=== PATIENT | male | born 1975 | race Two or more races ===

== ENCOUNTER → 2020-05-28 09:25 | Outpatient (BNVA) | payer OTHER, SELFPAY | PROVIDERS: PCP Internal Medicine; Visit Provider Orthopaedic Surgery | DX: Z47.89 Encounter for other orthopedic aftercare (principal); M17.31 Unilateral post-traumatic osteoarthritis, right knee; T14.90XS Injury, unspecified, sequela | CPT/HCPCS: 99024; 99212 ==

== ENCOUNTER → 2020-06-03 12:16 | Outpatient (BNVA) | payer OTHER, SELFPAY | PROVIDERS: PCP Internal Medicine; Referring Provider Internal Medicine; Visit Provider Orthopaedic Surgery | DX: Z76.89 Persons encountering health services in other specified circumstances (principal) ==

== ENCOUNTER 2020-07-10 12:34 | Outpatient (REF) | payer OTHER, SELFPAY ==
--- NOTE | 2020-07-10 12:43 | ECG_ITS ---
Test Reason : PREPROC EXAM Blood Pressure : / mmHG Vent. Rate : 052 BPM Atrial Rate : 052 BPM P-R Int : 178 ms QRS Dur : 100 ms QT Int : 400 ms P-R-T Axes : 034 026 035 degrees QTc Int : 372 ms Sinus bradycardia Otherwise normal ECG No previous ECGs available Referred By: Solomon Hernandes Electronically Signed By:RAYMOND WILSON MD
[2020-07-10 13:26] LABS: MANUAL DIFF FLAG NO
[2020-07-10 13:28] LABS: Basophils Absolute Auto 0.1 X10*3/uL (0.0-0.2); Basophils Percent Auto 0.6 % (0-2); Eosinophils Absolute Auto 0.1 X10*3/uL (0.0-0.4); Hematocrit 44.3 % (42-52); Hemoglobin 14.4 g/dl (14.0-18.0); Imm Gran Abs Auto 0.03 X10*3/uL (0.00-0.03); Imm Gran Pct Auto 0.3 % (0.0-0.4); Lymphocytes Absolute Auto 3.8 X10*3/uL (1.2-4.9); Lymphocytes Percent Auto 36.1 % (20-40); Mean Corpuscular HGB Conc 32.5 g/dl (31.0-36.0); Mean Corpuscular Hemoglobin 29.8 pg (27.0-33.0); Mean Corpuscular Volume 91.7 fL (80-98); Mean Platelet Volume 10.4 fL (9.4-12.4); Monocytes Absolute Auto 0.9 X10*3/uL (0.1-1.2); Monocytes Percent Auto 8.9 % (2-11); Neutrophils Absolute Auto 5.6 X10*3/uL (2.0-8.3); Neutrophils Percent Auto 53.1 % (45-73); Platelet Count 243 X10*3/uL (160-400); Red Blood Count 4.83 X10*6/uL (4.60-5.80); Red Cell Distribution Width 13.3 % (11.0-16.0); White Blood Count 10.5 X10*3/uL (4.8-10.8)
[2020-07-10 13:49] LABS: Anion Gap 10 (12-20); Blood Urea Nitrogen 11 mg/dL (9-16); Calcium 8.9 mg/dL (8.4-10.2); Carbon Dioxide 26 mmol/L (22-29); Chloride 107 mmol/L (96-108); Estimated Glomerular Filt Rate > 60; Glucose Random 95 mg/dL (60-115); Potassium 4.3 mmol/l (3.3-5.1); Sodium 139 mmol/L (135-145)
== END 2020-07-10 12:35 | disposition home or self-care (01) ==
LOC: HO.LAB 12:34
PROVIDERS: PCP Internal Medicine; Visit Provider Physician Assistant
DX: Z01.812 Encounter for preprocedural laboratory examination (principal)
CPT/HCPCS: 36415; 80048; 85025; 93005

== ENCOUNTER 2020-07-30 12:21 | Outpatient (REF) | payer OTHER, SELFPAY ==
--- NOTE | 2020-07-30 13:16 | XR_ITS ---
EXAMINATION: XR KNEE, RIGHT XR KNEE STANDING BILATERAL CLINICAL INFORMATION: Knee pain COMPARISON: 11/01/2019 TECHNIQUE: AP standing view both knees Right knee, sunrise and lateral views FINDINGS: AP STANDING VIEW OF BOTH KNEES Interval removal of the right tibial fixation hardware. Old, healed tibial plateau fractures. Also, old, healed fracture of the right fibular head-neck. At the degenerated medial compartment of the right knee, there is mild narrowing of joint space and osteophyte formation. Marginal osteophytes are present at the mildly degenerated lateral compartment. Bones have normal alignment at the left knee. The medial and lateral tibial femoral joint spaces of the left knee are maintained. There appears to be a subarticular cyst in the region of the intercondylar eminence. No suspicious bone lesion. Soft tissues are unremarkable. RIGHT KNEE, LATERAL AND SUNRISE VIEWS No knee joint effusion. Subchondral cystic change and osteophyte formation of mildly degenerated patellofemoral compartment. Again noted are multiple ghost tracks from previously placed and removed tibial fixation hardware. XR/XR knee RT 2V IMPRESSION: * Old healed fractures of the proximal right tibia and fibula. * [id number] tricompartmental osteoarthritis of the right knee.
--- NOTE | 2020-07-30 13:16 | XR_ITS ---
EXAMINATION: XR KNEE, RIGHT XR KNEE STANDING BILATERAL CLINICAL INFORMATION: Knee pain COMPARISON: 11/01/2019 TECHNIQUE: AP standing view both knees Right knee, sunrise and lateral views FINDINGS: AP STANDING VIEW OF BOTH KNEES Interval removal of the right tibial fixation hardware. Old, healed tibial plateau fractures. Also, old, healed fracture of the right fibular head-neck. At the degenerated medial compartment of the right knee, there is mild narrowing of joint space and osteophyte formation. Marginal osteophytes are present at the mildly degenerated lateral compartment. Bones have normal alignment at the left knee. The medial and lateral tibial femoral joint spaces of the left knee are maintained. There appears to be a subarticular cyst in the region of the intercondylar eminence. No suspicious bone lesion. Soft tissues are unremarkable. RIGHT KNEE, LATERAL AND SUNRISE VIEWS No knee joint effusion. Subchondral cystic change and osteophyte formation of mildly degenerated patellofemoral compartment. Again noted are multiple ghost tracks from previously placed and removed tibial fixation hardware. XR/XR knee standing BI IMPRESSION: * Old healed fractures of the proximal right tibia and fibula. * [id number] tricompartmental osteoarthritis of the right knee.
== END 2020-07-30 12:22 | disposition home or self-care (01) ==
LOC: HO.HOSX 12:21
PROVIDERS: Visit Provider Physician Assistant
DX: M17.31 Unilateral post-traumatic osteoarthritis, right knee (principal); M25.569 Pain in unspecified knee
CPT/HCPCS: 73560; 73565; 99212

== ENCOUNTER 2020-08-03 12:00 | Outpatient (RCR) | payer OTHER, SELFPAY ==
--- NOTE | 2020-07-24 13:14 | MHC.PT.EP ---
[facility] [place] Office [place] Office [place] Office [address] [phone] F: [phone] F: [phone] F: [phone] F: [phone] Physical Therapy Plan of Care Date of Evaluation: 07/24/20 Date of Surgery: NA Diagnosis: Unilateral post traumatic OA R Knee Assessment: 45 year old male referred for prehab of R knee. Pt has OA in R knee and scheduled for R TKA on 08/04/20. Examination reveals 0/10 pain at rest and 6/10 pain with weight bearing activities, decreased knee ROM, decreased muscle strength, altered posture and gait. He lives with his and is independent with self care activities but needs help for IADLS. He is a good candidate for PT based on age, goals, physical impairments and functional limitations. He would benefit from PT to decrease pain, improve ROM, increase muscle strength, postural correction and functional training. 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 Pt will be independent with all HEPs in 1 week. Treatment Plan: Modalities to reduce pain, spasms and effusion. Manual therapy to restore motion and function. Therapeutic exercise to improve strength and flexibility. Neuromuscular re-education for posture and balance. Therapeutic activities to return to functional activities of daily living. Please sign and return to therapist. Thank you for your referral.
--- NOTE | 2020-08-03 12:40 | MHC.PT.DC ---
[facility] [place] Office [place] Office [place] Office [address] Devika Ledezma [address] [phone] F: [phone] F: [phone] F: [phone] F: [phone] Physical Therapy Discharge Report Diagnosis: Unilateral post traumatic OA R Knee Date of Surgery: NA Date of Evaluation: 07/24/20 Date of Discharge: 08/03/20 Treatments to Date: 3 Cancellations to Date: 0 No Shows to Date: 0 Discharge Status: Achieved Goals Improved Function Discharge Summary: Pt arrived with no new complaints. He is schedules for TKA tomorrow (08/04/20). All LE strengthening exercises were reviewed with the patient. He is independent with all HEPs. Pt d/c from therapy today. He will return to therapy post op. Electronically signed by: Uzma Foley DPT Please sign and return to therapist. Thank you for your referral.
== END 2020-08-03 12:41 | disposition other institution (70) ==
LOC: HO.PT 12:00
PROVIDERS: PCP Internal Medicine; Visit Provider Physician Assistant
DX: M17.31 Unilateral post-traumatic osteoarthritis, right knee (principal); T14.90XS Injury, unspecified, sequela; X58.XXXS Exposure to other specified factors, sequela
CPT/HCPCS: 97110; 97161

== ENCOUNTER 2020-08-04 06:59 | Inpatient (IN) | payer MEDICARE, OTHER, SELFPAY ==
--- NOTE | 2020-07-30 09:05 | HO.ANESPROP2 ---
Documented by User: Celina Gisela 07/30/20 13:03 HPI - Anesthesia Eval Consult details Narrative: 45yo M for R TKA PCP cleared [facility] Past Medical History Medical History Post-traumatic osteoarthritis of right knee Tibia fracture Family History Family History Father No problems noted. Mother Diabetes mellitus Surgical History Surgical History History of removal of retained hardware S/P hernia repair History of Problems with Anesthesia: No Social History Social History Are you a primary health care facilities inspector to a significant other at home: No Do you presently have visiting nurse or other home services: No Alcohol intake: never Smoking Status: Former smoker Tobacco Type: Cigarette Years Smoked: 25 Smoked in Last 30 Days: No Smoking Quit Date: 05/2020 Second Hand Smoke Exposure: No Use of substances other than those prescribed or required for medical reasons: No Have you been hit, kicked, punched, or otherwise hurt by someone within the past year? 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 No CP/SOB. Activity ilmited to pain. Meds Allergies Allergy/AdvReac Type Severity Reaction Status Date / Time No Known Allergies Allergy Verified 07/30/20 12:28 [No Known Allergies*] Exam Exam Date and Time: July 30, 2020 0905 Height,Weight and Vital Signs: Vital Signs Pulse Rate 56 07/30/20 11:46 Respiratory Rate 16 07/30/20 11:46 Blood Pressure 116/76 07/30/20 11:46 Pulse Oximetry 96 07/30/20 11:46 Pulse Rate 56 07/30/20 11:46 Respiratory Rate 16 07/30/20 11:46 Blood Pressure 116/76 07/30/20 11:46 Pulse Oximetry 96 07/30/20 11:46 Pertinent Lab Results Pertinent Lab Results: Laboratory Tests 07/10/20 07/10/20 12:48 12:48 WBC 10.5 Hgb 14.4 Hct 44.3 Plt Count 243 Sodium 139 Potassium 4.3 Chloride 107 Carbon Dioxide 26 BUN 11 Creatinine 0.84 Narrative Narrative: EKG 06/2020: Sinus bradycardia Otherwise normal ECG No previous ECGs available Airway Mallampati Class: II TM Dist: >3cm Neck ROM: Full Partial: Upper and Lower Heart: RRR Lungs: CTAB Assessment and Plan Assessment Anesthesia Assessment: Anesthesia Plan Discussed and PAT Visit Documented by User: Portillo Samano MD 08/04/20 10:23 PMFSH Past Medical History Medical History Post-traumatic osteoarthritis of right knee Tibia fracture Family History Family History Father No problems noted. Mother Diabetes mellitus Surgical History Surgical History History of removal of retained hardware S/P hernia repair Social History Social History Are you a primary health care facilities inspector to a significant other at home: No Do you presently have visiting nurse or other home services: No Alcohol intake: never Smoking Status: Former smoker Tobacco Type: Cigarette Years Smoked: 25 Smoked in Last 30 Days: No Smoking Quit Date: 05/2020 Second Hand Smoke Exposure: No Use of substances other than those prescribed or required for medical reasons: No Have you been hit, kicked, punched, or otherwise hurt by someone within the past year? If so, by whom?: No Spiritual Healthcare Practices: none Gnosticist Healthcare Practices: none Cultural Healthcare Practices: none Advance Directives: No Advance Directives Information Provided: No Advance Directives on File: No Recently lost weight without trying: No Current occupational status: employed Current occupation: [employer] Allergies Allergy/AdvReac Type Severity Reaction Status Date / Time No Known Allergies Allergy Verified 07/30/20 12:28 [No Known Allergies*] Assessment and Plan Assessment Anesthesia Assessment: Anesthesia Plan Discussed, PAT Visit and Chart Reviewed Final Anesthetic Review NPO: Yes ASA Class: II Final Preanesthetic Review: No Changes in Pt Med Stat, Meds/Allgs Chart Reviewed, Consent Obtained/Reviewed and Anes Risks/Benef Reviewed Patient Risk: Low Procedure Risk: Intermediate Anesthetic Plan Anesthetic Plan: MAC:, Spinal and Regional Block Disposition: Standard PACU
[2020-07-30 11:46] VITALS: BP 116/76; PULSE 56; RESP 16; O2SAT 96; BMI 33.2
[2020-07-30 15:20] LABS: MRSA Nasal PCR NEGATIVE (Negative); SA Nasal PCR NEGATIVE (Negative)
[2020-08-04] VITALS (11 sets, daily range): BP systolic 98–116; BP diastolic 50–80; PULSE 45–89; RESP 16–20; TEMP 36.1–36.7; O2SAT 95–100
[2020-08-04] MEDS: Gabapentin 600 MG TABLET PO (08:05)
[2020-08-04] MEDS: ceFAZolin Sodium/Dextrose,Iso 2 GM/50 ML PIGGYBACK IV ×2 (08:20→16:19)
[2020-08-04 08:33] LABS: COVID-19 Test Negative (Negative); IDNOW Serial# 9DD0AD1C
[2020-08-04] MEDS: Lactated Ringers 1,000 ML 100 ML IVCONT (08:44)
--- NOTE | 2020-08-04 09:11 | MHC.SHP ---
Pre-Procedural Eval Section A The patient is an INPATIENT: No Changes since office visit: Yes Patient answered all questions; No Cold of Flu in the past 2 weeks, No New Medical Problems and No Changes in Medication The History & Physical has been completed within 30 days and I have reviewed it.: Yes Section B Chief Complaint: RIGHT TOTAL KNEE ARTHROPLASTY Allergies: Allergies Allergy/AdvReac Type Severity Reaction Status Date / Time No Known Allergies Allergy Verified 07/30/20 12:28 [No Known Allergies*] Plan Patient has been examined and remains a candidate for the planned procedure
--- NOTE | 2020-08-04 11:43 | PM.OP ---
Brief Operative Note Date of Service: 08/04/20 Pre-op diagnosis: right knee post traumatic oa Post-op diagnosis: same Procedure: right tka Implants: daniel triathalon press fit PS 12/22/12 Surgeon: Doroteo Rothman MD Anesthesia: regional and spinal Manager Of Case: Solomon Hernandes Estimated blood loss (mL): 25 Tourniquet time (min): 75 IV fluids (mL): 1,000 Pathology: other Condition: stable Disposition: PACU
--- NOTE | 2020-08-04 12:15 | XR_ITS ---
EXAMINATION: XR KNEE, RIGHT CLINICAL INFORMATION: Right knee arthroplasty. COMPARISON: Standing AP knees and right knee 07/30/2020 TECHNIQUE: Portable AP and crosstable lateral views of the right knee. FINDINGS: There is right total knee arthroplasty. The hardware is intact. There is no acute fracture or dislocation or destructive process. There are overlying skin aly. Gas is seen in the joint capsule as expected. There are old screw tracts and old healed fracture proximal tibia. XR/XR knee RT 2V IMPRESSION: Status post right total knee arthroplasty.
[2020-08-04] MEDS: Dextrose 5 % and 0.45 % NaCl 1,000 ML 80 ML IVCONT (13:52)
--- NOTE | 2020-08-04 14:48 | P.CONIM_ITS ---
History of Present Illness Data of Consult Service Date: 08/04/20 Requesting physician: Arjun Ibarra Primary Care Provider: Shila Owusu MD [facility] Reason for consult: Medical Management 45-year-old man admitted by Orthopedic surgery, status post right total knee arthroplasty. Surgery was unremarkable. Patient has been able to eat and drink without any nausea or vomiting. Vital signs are stable. Patient has no acute medical complaints. He is currently resting in bed comfortable. Review of Systems Review of Systems: Denies any recent fever chills or decrease in appetite respiratory denies any shortness of breath coverage production cardiovascular is adjustment of any PND or edema gastrointestinal denies any dysphagia abdominal pain nausea vomiting or diarrhea genitourinary denies any dysuria frequency or hematuria musculoskeletal Knee pain neuropsych denies any weakness or seizures all other systems reviewed are negative FOR[facility], [facility] Medical History Post-traumatic osteoarthritis of right knee Tibia fracture Family History Father No problems noted. Mother Diabetes mellitus Surgical History History of removal of retained hardware S/P hernia repair Social History Are you a primary housekeeper caregiver to a significant other at home: No Do you presently have visiting nurse or other home services: No Alcohol intake: never Smoking Status: Former smoker Tobacco Type: Cigarette Years Smoked: 25 Smoked in Last 30 Days: No Smoking Quit Date: 05/2020 Second Hand Smoke Exposure: No Use of substances other than those prescribed or required for medical reasons: No Have you been hit, kicked, punched, or otherwise hurt by someone within the past year? If so, by whom?: No Spiritual Healthcare Practices: none Jew Healthcare Practices: none Cultural Healthcare Practices: none Advance Directives: No Advance Directives Information Provided: No Advance Directives on File: No Recently lost weight without trying: No Current occupational status: employed Current occupation: [employer] Allergies Allergy/AdvReac Type Severity Reaction Status Date / Time No Known Allergies Allergy Verified 07/30/20 12:28 [No Known Allergies*] Home Medications Medication Instructions Recorded Confirmed Type citalopram 20 mg PO DAILY 08/04/20 08/04/20 History cyclobenzaprine 10 mg PO BEDTIME PRN 08/04/20 08/04/20 History prazosin 1 mg PO BEDTIME 08/04/20 08/04/20 History Physical Exam Vital Signs and Narrative: Vital Signs: Last Vital Signs Temp 97.0 F 08/04/20 13:05 Pulse 62 08/04/20 13:05 Resp 16 08/04/20 13:05 BP 100/69 08/04/20 13:05 Pulse Ox 99 08/04/20 13:05 Body Mass Index 33.2 Appearing in no acute distress head is normocephalic atraumatic eyes pupils are PERRLA sclera is anicteric mouth throat mucous membranes are intact and moist neck is supple no lymphadenopathy, no JVD noted lung sounds are clear to auscultation heart regular rate rhythm, clear S1, S2 positive bowel sounds, abdomen is soft, nontender neuro patient is alert x3, no focal deficits MSK dressing clean dry and intact. Results Labs Labs: Laboratory Results - last 24 hr 08/04/20 08:02 COVID-19 ([facility]) Negative COVID-19 Clin Com See Note Imaging Radiologist's Impressions: Impressions Knee X-Ray 08/04/20 12:15 IMPRESSION: Status post right total knee arthroplasty. Assessment and Plan (1) Post-traumatic osteoarthritis of right knee: Status: Acute 45 year old man status post right knee arthroplasty. Right knee arthroplasty. Management as per surgical team. Pain management. Anxiety. Continue citalopram. DVT prophylaxis as per surgical team. Discussed with Dr. Ponce Full code
[2020-08-04] MEDS: oxyCODONE HCl Immed Release 5 MG TABLET PO ×2 (16:18→20:15)
[2020-08-04] MEDS: HYDROmorphone HCl 0.5 MG/0.5 ML SYRINGE 0.25 MG IVPUSH ×2 (18:36→22:35)
[2020-08-04] MEDS: Acetaminophen 325 MG TABLET 650 MG PO (19:46)
[2020-08-04] MEDS: oxyCODONE HCl ER 10 MG TAB.ER.12H PO (20:15)
[2020-08-04] MEDS: Prazosin HCL 1 MG CAPSULE PO (20:16)
[2020-08-04] MEDS: Celecoxib 200 MG CAPSULE PO (20:16)
[2020-08-05] VITALS (10 sets, daily range): BP systolic 125–149; BP diastolic 69–94; PULSE 71–103; RESP 16–19; TEMP 36.3–37.2; O2SAT 93–96; BMI 33.2
[2020-08-05] MEDS: oxyCODONE HCl Immed Release 5 MG TABLET 10 MG PO ×4 (01:06→13:43)
[2020-08-05] MEDS: Dextrose 5 % and 0.45 % NaCl 1,000 ML 80 ML IVCONT ×2 (02:22→23:18)
[2020-08-05] MEDS: HYDROmorphone HCl 0.5 MG/0.5 ML SYRINGE 0.25 MG IVPUSH ×4 (02:25→19:44)
[2020-08-05] MEDS: Celecoxib 200 MG CAPSULE PO ×2 (08:13→21:28)
[2020-08-05] MEDS: Aspirin 325 MG TABLET PO ×2 (08:14→21:27)
[2020-08-05] MEDS: Escitalopram Oxalate 10 MG TABLET PO (08:14)
[2020-08-05] MEDS: oxyCODONE HCl ER 10 MG TAB.ER.12H PO ×2 (08:15→21:28)
--- NOTE | 2020-08-05 09:30 | MHC.CM.PN ---
PATIENT LIVES WITH HIS HE RELIES ON A CANE AND WALKER AND STATES THAT A NURSE VISITS HIM HOME 2-3 TIMES PER WEEK. PATIENT BELIEVES THE AGENCY IS [facility]. REFERRAL PLACED TO INQUIRE. PLAN IS HOME WITH SERVICES FOR PHYSICAL THERAPY. HERRERA TO TRANSPOIF
[2020-08-05 09:36] LABS: Anion Gap 14 (12-20); Blood Urea Nitrogen 12 mg/dL (9-16); Calcium 8.3 mg/dL (8.4-10.2); Carbon Dioxide 24 mmol/L (22-29); Chloride 102 mmol/L (96-108); Creatinine Clr Calc Pharmacy 108.5; Estimated Glomerular Filt Rate > 60; Glucose Fasting 112 mg/dL (60-99); Potassium 3.9 mmol/l (3.3-5.1); Sodium 136 mmol/L (135-145)
--- NOTE | 2020-08-05 10:09 | P.PNOP_ITS ---
Subjective Subjective Date of Service: 08/05/20 Principal diagnosis: RT TKA Interval history: POD 1 sp RT TKA No overnight events , he is resting in bed, has some improvement with pain once medication was adjusted. No concerns. Denies cp. sob, palpitation. Physical Exam Vital Signs: Vital Signs: Last Vital Signs Temp 99.0 F 08/05/20 08:00 Pulse 78 08/05/20 08:00 Resp 18 08/05/20 08:00 BP 149/81 H 08/05/20 08:00 Pulse Ox 95 08/05/20 08:00 Body Mass Index 33.2 Const: General: cooperative, healthy appearing and no acute distress Resp: Effort & Inspection: normal respiratory effort and able to speak in complete sentences Cardio: Rate: regular rate Peripheral pulses: Peripheral pulses 2+ throughout GI: Inspection: Yes normal to inspection Palpation (GI): Soft to palpation Skin: General skin exam: no rashes or lesions noted Extrem: Other: Right knee dressing intact, no erythema mild edema, sensation intact. Progress Note: A&P Assessment and plan (1) Status post total right knee replacement: Status: Acute Assessment and Plan: Continue pain mgmnt Beginasa for dvt ppx begin PT for RT TKA Dispo planning-Pending PT eval, pain mgmnt Fall Risk Details Current Medications: Current Medications Generic Name Dose Route Start Last Admin Trade Name Freq PRN Reason Stop Dose Admin Acetaminophen 650 mg 08/04/20 13:05 08/04/20 19:46 Acetaminophen 325 Mg Tablet PO 650 mg Q6H PRN Administration Pain, Mild (Pain Scale 1-3) Aspirin 325 mg 08/05/20 10:00 08/05/20 08:14 Aspirin 325 Mg Tablet PO 325 mg BID MATHEUS Administration Celecoxib 200 mg 08/04/20 21:00 08/05/20 08:13 Celecoxib 200 Mg Capsule PO 200 mg BID MATHEUS Administration Escitalopram Oxalate 10 mg 08/05/20 09:00 08/05/20 08:14 Escitalopram Oxalate 10 Mg Tablet PO 10 mg DAILY MATHEUS Administration Hydromorphone HCl 0.25 mg 08/04/20 13:05 08/05/20 06:42 Hydromorphone Hcl 0.5 Mg/0.5 Ml Syringe IVPUSH 0.25 mg Q4H PRN Administration Pain, Severe (Pain Scale 7-10) Dextrose/Sodium Chloride 1,000 mls @ 80 mls/hr 08/04/20 13:05 08/05/20 02:22 D51/2ns IVCONT 80 mls/hr .[id number] MATHEUS Administration Naloxone HCl 0.2 mg 08/04/20 13:05 Naloxone Hcl 0.4 Mg/Ml Vial IVPUSH Q2M PRN Excessive sedation or RR < 8 Ondansetron HCl 4 mg 08/04/20 13:05 Ondansetron Hcl 4 Mg/2 Ml Vial IVPUSH Q8H PRN Nausea and Vomiting Oxycodone HCl 10 mg 08/04/20 21:00 08/05/20 08:15 Oxycodone Hcl Er 10 Mg Tab.Er.12h PO 10 mg BID MATHEUS Administration Oxycodone HCl 10 mg 08/04/20 21:41 08/05/20 05:05 Oxycodone Hcl Immed Release 5 Mg Tablet PO 10 mg Q4H PRN Administration Pain, Moderate (Pain Scale 4-6 Pharmacy Consult 1 each 08/04/20 14:52 Consult Rx Perform Med Rec MISCELLANE ONCE PRN Consult order Prazosin HCl 1 mg 08/04/20 21:00 08/04/20 20:16 Prazosin Hcl 1 Mg Capsule PO 1 mg BEDTIME MATHEUS Administration Protocol Senna 17.2 mg 08/04/20 13:05 Sennosides 8.6 Mg Tablet PO BEDTIME PRN Constipation Sodium Chloride 3 ml 08/04/20 16:00 08/05/20 08:16 0.9 % Sodium Chloride Flush 3 Ml Syringe IVFLUSH Not Given QSHIFT [facility] Time Spent With Patient Time: Total time spent is greater than 50% in coordination of care (as documented) at patient's floor/unit and/or counseling patient: Time with patient: 15 - 24 minutes
[2020-08-05 10:39] LABS: Basophils Percent Auto 0.2 % (0-2); Hematocrit 39.1 % (42-52); Hemoglobin 12.9 g/dl (14.0-18.0); Imm Gran Abs Auto 0.13 X10*3/uL (0.00-0.03); Imm Gran Pct Auto 0.7 % (0.0-0.4); Lymphocytes Absolute Auto 2.7 X10*3/uL (1.2-4.9); Lymphocytes Percent Auto 14.1 % (20-40); MANUAL DIFF FLAG SCAN; Mean Corpuscular Hemoglobin 30.4 pg (27.0-33.0); Mean Platelet Volume 10.9 fL (9.4-12.4); Monocytes Absolute Auto 2.4 X10*3/uL (0.1-1.2); Monocytes Percent Auto 12.4 % (2-11); Neutrophils Percent Auto 72.6 % (45-73); Platelet Count 232 X10*3/uL (160-400); Red Blood Count 4.25 X10*6/uL (4.60-5.80); Red Cell Distribution Width 13.7 % (11.0-16.0); SCAN SMEAR FLAG 1; White Blood Count 19.3 X10*3/uL (4.8-10.8)
[2020-08-05 12:02] LABS: SLIDE REVIEW VERIFIED
--- NOTE | 2020-08-05 14:22 | HO.POSTANES ---
Post Anesthesia Evaluation Post Anesthesia Evaluation Vital Signs: Vital Signs Temp Pulse Resp BP Pulse Ox 08/05/20 12:00 97.8 F 89 19 141/94 H 95 08/05/20 08:00 99.0 F 78 18 149/81 H 95 08/05/20 06:42 18 08/05/20 04:00 97.4 F 71 16 140/69 H 94 08/05/20 02:25 18 Anesthesia: Spinal and Nerve Block Mental Status: Awake Pain Control: Satisfactory Nausea/Vomiting: None Hydration: Adequate Anesthesia-Related Issues: No Anes. Related Issues
--- NOTE | 2020-08-05 14:57 | HO.PM.IMPN ---
Subjective Subjective Date of Service: 08/05/20 Interval History: pt seen and examined at bedside . no acute events. Reports pain is not controlled. has no chest pain, no sob, no abdominal pain Physical Exam Vital Signs: Vital Signs: Last Vital Signs Temp 97.8 F 08/05/20 12:00 Pulse 89 08/05/20 12:00 Resp 19 08/05/20 12:00 BP 141/94 H 08/05/20 12:00 Pulse Ox 95 08/05/20 12:00 Body Mass Index 33.2 Const: General: cooperative and no acute distress Orientation/consciousness: patient oriented x3 Eyes: General: appearance normal, both eyes and all related structures Pupils: Equal, round and reactive pupils present Resp: Effort & Inspection: normal respiratory effort and able to speak in complete sentences Auscultation: clear to auscultation bilaterally Cardio: Rate: regular rate Rhythm: regular rhythm GI: Palpation (GI): Soft to palpation Auscultation: normal bowel sounds Skin: General skin exam: no rashes or lesions noted Neuro: General: patient oriented x3 Cranial nerves: Yes Equal, round and reactive pupils present Cognition (Neuro): normal cognition Extrem: Other: right knee in dressing Objective Data Current Medications Generic Name Dose Route Start Last Admin Trade Name Freq PRN Reason Stop Dose Admin Acetaminophen 650 mg 08/04/20 13:05 08/04/20 19:46 Acetaminophen 325 Mg Tablet PO 650 mg Q6H PRN Administration Pain, Mild (Pain Scale 1-3) Aspirin 325 mg 08/05/20 10:00 08/05/20 08:14 Aspirin 325 Mg Tablet PO 325 mg BID MATHEUS Administration Celecoxib 200 mg 08/04/20 21:00 08/05/20 08:13 Celecoxib 200 Mg Capsule PO 200 mg BID MATHEUS Administration Escitalopram Oxalate 10 mg 08/05/20 09:00 08/05/20 08:14 Escitalopram Oxalate 10 Mg Tablet PO 10 mg DAILY MATHEUS Administration Hydromorphone HCl 0.25 mg 08/04/20 13:05 08/05/20 10:52 Hydromorphone Hcl 0.5 Mg/0.5 Ml Syringe IVPUSH 0.25 mg Q4H PRN Administration Pain, Severe (Pain Scale 7-10) Dextrose/Sodium Chloride 1,000 mls @ 80 mls/hr 08/04/20 13:05 08/05/20 02:22 D51/2ns IVCONT 80 mls/hr .[id number] MATHEUS Administration Naloxone HCl 0.2 mg 08/04/20 13:05 Naloxone Hcl 0.4 Mg/Ml Vial IVPUSH Q2M PRN Excessive sedation or RR < 8 Ondansetron HCl 4 mg 08/04/20 13:05 Ondansetron Hcl 4 Mg/2 Ml Vial IVPUSH Q8H PRN Nausea and Vomiting Oxycodone HCl 10 mg 08/04/20 21:00 08/05/20 08:15 Oxycodone Hcl Er 10 Mg Tab.Er.12h PO 10 mg BID MATHEUS Administration Oxycodone HCl 10 mg 08/04/20 21:41 08/05/20 13:43 Oxycodone Hcl Immed Release 5 Mg Tablet PO 10 mg Q4H PRN Administration Pain, Moderate (Pain Scale 4-6 Pharmacy Consult 1 each 08/04/20 14:52 Consult Rx Perform Med Rec MISCELLANE ONCE PRN Consult order Prazosin HCl 1 mg 08/04/20 21:00 08/04/20 20:16 Prazosin Hcl 1 Mg Capsule PO 1 mg BEDTIME MATHEUS Administration Protocol Senna 17.2 mg 08/04/20 13:05 Sennosides 8.6 Mg Tablet PO BEDTIME PRN Constipation Sodium Chloride 3 ml 08/04/20 16:00 08/05/20 08:16 0.9 % Sodium Chloride Flush 3 Ml Syringe IVFLUSH Not Given QSHIFT [facility] Labs CBC & Chem 7: 08/05/20 08:05 08/05/20 08:05 Assessment and Plan (1) Status post total right knee replacement: Status: Acute Assessment and Plan: 45 year old man status post right knee arthroplasty. medical team is consulted for medical management # Right knee arthroplasty. Management as per surgical team. Pain management. #Anxiety. Continue citalopram. DVT prophylaxis as per surgical team. Medically stable Signing off If further consultation needed, please reconsult us thank you
[2020-08-05] MEDS: Prazosin HCL 1 MG CAPSULE PO (21:28)
[2020-08-06 00:06] VITALS: RESP 18
[2020-08-06] MEDS: HYDROmorphone HCl 0.5 MG/0.5 ML SYRINGE 0.25 MG IVPUSH ×2 (00:06→04:40)
[2020-08-06] MEDS: oxyCODONE HCl Immed Release 5 MG TABLET 10 MG PO ×2 (01:45→07:31)
[2020-08-06 03:16] VITALS: BP 115/73; PULSE 98; RESP 16; TEMP 36.5; O2SAT 99
[2020-08-06 04:40] VITALS: RESP 18
[2020-08-06 06:11] LABS: Basophils Percent Auto 0.2 % (0-2); Eosinophils Absolute Auto 0.1 X10*3/uL (0.0-0.4); Eosinophils Percent Auto 0.3 % (0-4); Hematocrit 31.7 % (42-52); Hemoglobin 10.7 g/dl (14.0-18.0); Imm Gran Pct Auto 0.6 % (0.0-0.4); Lymphocytes Absolute Auto 2.8 X10*3/uL (1.2-4.9); Lymphocytes Percent Auto 15.5 % (20-40); MANUAL DIFF FLAG SCAN; Mean Corpuscular HGB Conc 33.8 g/dl (31.0-36.0); Mean Corpuscular Hemoglobin 30.5 pg (27.0-33.0); Mean Corpuscular Volume 90.3 fL (80-98); Mean Platelet Volume 10.3 fL (9.4-12.4); Monocytes Absolute Auto 2.1 X10*3/uL (0.1-1.2); Monocytes Percent Auto 11.7 % (2-11); Neutrophils Absolute Auto 12.8 X10*3/uL (2.0-8.3); Neutrophils Percent Auto 71.7 % (45-73); Platelet Count 163 X10*3/uL (160-400); Red Blood Count 3.51 X10*6/uL (4.60-5.80); Red Cell Distribution Width 13.2 % (11.0-16.0); SCAN SMEAR FLAG 1; White Blood Count 17.8 X10*3/uL (4.8-10.8)
[2020-08-06 06:38] LABS: Anion Gap 10 (12-20); Blood Urea Nitrogen 7 mg/dL (9-16); Carbon Dioxide 27 mmol/L (22-29); Chloride 100 mmol/L (96-108); Creatinine Clr Calc Pharmacy 119.1; Estimated Glomerular Filt Rate > 60; Glucose Fasting 133 mg/dL (60-99); Potassium 3.8 mmol/l (3.3-5.1); Sodium 133 mmol/L (135-145)
[2020-08-06 06:46] LABS: SLIDE REVIEW VERIFIED
[2020-08-06 07:26] VITALS: BP 123/74; PULSE 95; RESP 18; TEMP 37; O2SAT 93
[2020-08-06] MEDS: Aspirin 325 MG TABLET PO (07:31)
[2020-08-06] MEDS: Escitalopram Oxalate 10 MG TABLET PO (07:31)
[2020-08-06] MEDS: Celecoxib 200 MG CAPSULE PO (07:31)
[2020-08-06] MEDS: oxyCODONE HCl ER 10 MG TAB.ER.12H PO (08:29)
[2020-08-06 11:28] VITALS: BP 102/63; PULSE 100; RESP 18; TEMP 36.8; O2SAT 93
--- NOTE | 2020-08-06 12:45 | P.DS_ITS ---
DS: Providers Provider Date of admission: 08/04/20 06:59 Primary care physician: Shila Owusu MD Consults: 08/04/20 13:05 Consult to Hospitalist Routine Consulting Provider: Hospitalist Reason for consultation: medical manament, post op tka DS: Diagnosis Discharge Diagnosis (1) Status post total right knee replacement: Status: Acute Problem details: Mr Cat presented to our office with ongoing right knee pain after marietta taining a traumatic injury several years ago in [place]. He underwent a hardware removal for tibial plateau fracture. Continued to have difficulty with ambulation and daily activities due to posttraumatic osteoarthritis of the right knee therefore he consented to move forward with right knee arthroplasty. DS: Medications Discharge Medications Home Medications: Home Medications Medication Instructions Recorded Confirmed citalopram 20 mg PO DAILY 08/04/20 08/04/20 cyclobenzaprine 10 mg PO BEDTIME PRN 08/04/20 08/04/20 prazosin 1 mg PO BEDTIME 08/04/20 08/04/20 Previous Rx's Medication Instructions Recorded miscellaneous medical supply #48 ea 06/02/20 Showerchair #1 ea 07/30/20 acetaminophen 650 mg PO Q6H PRN 30 Days #240 tab 08/06/20 aspirin 325 mg PO BID 14 Days #28 tab 08/06/20 oxycodone 10 mg PO Q4H PRN 7 Days #42 tab 08/06/20 sennosides [Senna Lax] 17.2 mg PO BEDTIME PRN 30 Days #60 08/06/20 tab DS: Summary Hospital Course Hospital Course: The patient underwent a successful right total knee arthroplasty, he was transferred to PACU and then to the floor to recover. During his stay, their vitals were stable, afebrile at 98.3. Labs were unremarkable, H/H 10.7/31.7. POD 1 he was started on aspirin for DVT ppx, they also received physical therapy services twice a day. Prior to discharge, their dressing was change, incision clean dry and intact, new Aquacel dressing applied and the plan was to be discharged home with VNA services,. Time Spent with Patient Time attestation: Total time spent providing and/or coordinating discharge services: Physical Exam Vital Signs: Vital Signs: Last Vital Signs Temp 98.3 F 08/06/20 11:28 Pulse 100 08/06/20 11:28 Resp 18 08/06/20 11:28 BP 102/63 08/06/20 11:28 Pulse Ox 93 08/06/20 11:28 Body Mass Index 33.2 Const: General: cooperative, healthy appearing and no acute distress Resp: Effort & Inspection: normal respiratory effort and able to speak in complete sentences Cardio: Rate: regular rate Peripheral pulses: Peripheral pulses 2+ throughout GI: Inspection: Yes normal to inspection Palpation (GI): Soft to palpation Skin: General skin exam: no rashes or lesions noted Extrem: Other: Right knee incision clean dry and intact, aly intact, no erythema no drainage. There is minimal swelling calf supple nontender. DS: Data Data Completed and Pending Pending studies at discharge: Pending at discharge 08/04/20 11:32 Surgical [PTH] Routine Labs on day of discharge: 07/30/20 12:30 MRSA Nasal Screen Routine 07/30/20 14:05 Type and Screen Routine 08/04/20 06:57 ceFAZolin Sodium/Dextrose,Iso [Ancef] 2 gm in 50 ml IV PREOP 08/04/20 06:57 Surgical prep, hair removal PREOP 08/04/20 08:01 Gabapentin [Neurontin] 300 mg .ROUTE .STK-MED ONE 08/04/20 08:02 COVID-19 ID NOW ([facility]) Stat ceFAZolin Sodium/Dextrose,Iso [Ancef] 2 gm in 50 ml .ROUTE As directed 08/04/20 08:24 Gabapentin [Neurontin] 600 mg PO PREOP ONE 08/04/20 08:30 Lactated Ringers [Lr] 1,000 ml IVCONT 100 mls/hr 08/04/20 08:48 Bupivacaine MPF 0.5 % [Sensorcaine MPF 0.5% 30 ML] 30 ml .ROUTE .STK-MED ONE Lidocaine HCl 2 % MPF [Xylocaine 2 % MPF] 5 ml .ROUTE .STK-MED ONE Midazolam HCl/PF [Versed] 2 mg .ROUTE .STK-MED ONE 08/04/20 08:50 propofoL [Diprivan] 200 mg IVPUSH .STK-MED ONE 08/04/20 10:32 Acetaminophen [Tylenol] 650 mg PO ONCE PRN Ketorolac Tromethamine [Toradol] 15 mg IVPUSH ONCE PRN ondansetron HCL [Zofran] 4 mg IVPUSH ONCE PRN oxyCODONE HCl Immed Release [Roxicodone] 5 mg PO ONCE PRN 08/04/20 10:34 Tranexamic Acid [Cyklokapron] 1,000 mg .ROUTE .STK-MED ONE Tranexamic Acid [Cyklokapron] 1,000 mg .ROUTE .STK-MED ONE 08/04/20 12:04 Transfer Order Routine 08/04/20 12:15 XR knee RT 2V Stat 08/04/20 12:57 propofoL [Diprivan] 200 mg IVPUSH .STK-MED ONE 08/04/20 13:05 oxyCODONE HCl Immed Release [Roxicodone] 5 mg PO Q4H PRN 08/04/20 16:00 ceFAZolin Sodium/Dextrose,Iso [Ancef] 2 gm in 50 ml IV POSTOP 08/05/20 08:05 Basic Metabolic Panel Fasting DAILY@0600 Complete Blood Count Auto Diff DAILY@0600 SLIDE REVIEW Routine 08/06/20 05:55 Basic Metabolic Panel Fasting DAILY@0600 Complete Blood Count Auto Diff DAILY@0600 SLIDE REVIEW Routine Laboratory Last Values WBC 17.8 X10*3/uL (4.8-10.8) H 08/06/20 05:55 RBC 3.51 X10*6/uL (4.60-5.80) L 08/06/20 05:55 Hgb 10.7 g/dl (14.0-18.0) L 08/06/20 05:55 Hct 31.7 % (42-52) L 08/06/20 05:55 MCV 90.3 fL (80-98) 08/06/20 05:55 MCH 30.5 pg (27.0-33.0) 08/06/20 05:55 MCHC 33.8 g/dl (31.0-36.0) 08/06/20 05:55 RDW 13.2 % (11.0-16.0) 08/06/20 05:55 Plt Count 163 X10*3/uL (160-400) D 08/06/20 05:55 MPV 10.3 fL (9.4-12.4) 08/06/20 05:55 Immature Gran % (Auto) 0.6 % (0.0-0.4) H 08/06/20 05:55 Neut % (Auto) 71.7 % (45-73) 08/06/20 05:55 Lymph % (Auto) 15.5 % (20-40) L 08/06/20 05:55 [place] % (Auto) 11.7 % (2-11) H 08/06/20 05:55 Eos % (Auto) 0.3 % (0-4) 08/06/20 05:55 Baso % (Auto) 0.2 % (0-2) 08/06/20 05:55 Lymph # (Auto) 2.8 X10*3/uL (1.2-4.9) 08/06/20 05:55 [place] # (Auto) 2.1 X10*3/uL (0.1-1.2) H 08/06/20 05:55 Eos # (Auto) 0.1 X10*3/uL (0.0-0.4) 08/06/20 05:55 Baso # (Auto) 0.0 X10*3/uL (0.0-0.2) 08/06/20 05:55 Abs Immat Gran (auto) 0.10 X10*3/uL (0.00-0.03) H 08/06/20 05:55 Absolute Neuts (auto) 12.8 X10*3/uL (2.0-8.3) H 08/06/20 05:55 Absolute Nucleated RBC 0.000 X10*3/uL (0.0-0.012) 08/06/20 05:55 Nucleated RBC % (auto) 0.0 /100WBC (0.0-0.2) 08/06/20 05:55 Smear Tech's Comments VERIFIED 08/06/20 05:55 Sodium 133 mmol/L (135-145) L 08/06/20 05:55 Potassium 3.8 mmol/l (3.3-5.1) 08/06/20 05:55 Chloride 100 mmol/L (96-108) 08/06/20 05:55 Carbon Dioxide 27 mmol/L (22-29) 08/06/20 05:55 Anion Gap 10 (12-20) L 08/06/20 05:55 BUN 7 mg/dL (9-16) L 08/06/20 05:55 Creatinine 0.82 mg/dL (0.5-1.4) 08/06/20 05:55 Estim Creat Clear Calc 119.1 08/06/20 05:55 Estimated GFR > 60 08/06/20 05:55 Fasting Glucose 133 mg/dL (60-99) H 08/06/20 05:55 Calcium 8.0 mg/dL (8.4-10.2) L 08/06/20 05:55 Nasal Screen MRSA (PCR) NEGATIVE (Negative) 07/30/20 12:30 Nasal S. aureus Screen NEGATIVE (Negative) 07/30/20 12:30 Nasal MRSA/S.aureus Interp SEE NOTE 07/30/20 12:30 COVID-19 ([place]) Negative (Negative) 08/04/20 08:02 COVID-19 Clin Com See Note 08/04/20 08:02 Blood Type O Negative 07/30/20 14:05 Antibody Screen NEGATIVE 07/30/20 14:05 Discharge Plan Discharge Patient Disposition: Home Health Service Referrals: [facility] [Outside] (PATIENT IS RETURNING HOME WITH ELLIOTTSUMI ROMAN FOR PHYSICAL THERAPY SERVICES) Solomon Hernandes PA-C [Physician Administrative Judge] - (f/u with orthopedics. ) Discharge Medications: New acetaminophen 325 mg Tablet 650 mg PO Q6H PRN (Reason: Pain, Mild (Pain Scale 1-3)) 30 Days Qty: 240 RF: 0 aspirin 325 mg Tablet 325 mg PO BID 14 Days Qty: 28 RF: 0 oxycodone 5 mg Tablet 10 mg PO Q4H PRN (Reason: Pain, Moderate (Pain Scale 4-6) 7 Days Qty: 42 RF: 0 sennosides [Senna Lax] 8.6 mg Tablet 17.2 mg PO BEDTIME PRN (Reason: Constipation) 30 Days Qty: 60 RF: 0 Continued (DME) miscellaneous medical supply Package See Rx Instructions .ROUTE .MEDSUPPLY Qty: 48 RF: 0 cyclobenzaprine 10 mg tablet 10 mg PO BEDTIME PRN (Reason: Muscle Pain) RF: 0 prazosin 1 mg capsule 1 mg PO BEDTIME RF: 0 citalopram 20 mg tablet 20 mg PO DAILY RF: 0 (DME) Showerchair See Rx Instructions .Route .MEDSUPPLY Qty: 1 RF: 0 Discontinued ibuprofen 800 mg tablet 800 mg PO TID PRN (Reason: fever or pain) Qty: 90 RF: 3 Discharge Orders: Discharge Order (Routine); Ordered 08/06/20 Ordered By: Solomon Hernandes Diet: regular diet Activity on Discharge: Use cane or walker Activity Restrictions/Additional Instructions: * Physical Therapy for ROM 0-120, quad strength, gait training . Use walker for ambulation * Limit stair climbing, No shower, No tub bath, No driving * Continue Aspiring for 2 weeks * Keep Aquacel dressing clean, dry and intact. * Follow up with orthopedics in 2 weeks Visit Report Forms: Patient Portal Discharge page Care Plan Goals: Restore function of right knee Health Concerns: none Plan of Treatment: Physical Therapy Pain management DVT prophylaxis
--- NOTE | 2020-08-06 13:25 | W.MHC.F2F ---
Service Date Service Date: 08/06/20 Reasons for Services Reason for physical therapy: home safety and mobility, therapeutic exercises, restore joint function, gait/transfer training and ADL training Reason for occupational therapy: home safety and mobility, therapeutic exercises, restore joint function, gait/transfer training and ADL training Overseeing Care: Doroteo Rothman Homebound: Leaving the home is medically contraindicated at this time without the asist of a device and/or another person due th the listed conditions above and below. Reason homebound: unsteady gait / fall risk, leg weakness, pain with ambulation, pain with transfers, poor balance / fall risk and unable to drive Homebound supporting statement: Pt. is considered home bound due to recent surgery. Unable to drive, poor balance, poor gait mechanics. Certification: Based on the above findings, I certify that this patient is confined to the home and needs intermittent detention care, physical therapy and/or speech therapy, or continues to need occupational therapy. The patient is under my care, and I have initiated the establishment of the plan of care. The patient will be followed by a physician who will periodically review the plan of care.
--- NOTE | 2020-08-06 13:25 | MHC.CM.PN ---
PATIENT IS DISCHARGED HOME WITH [facility]. RN AWARE OF PLAN
--- NOTE | 2020-08-06 13:30 | OP_ITS ---
SURGEON: Doroteo Rothman MD INDICATIONS: A 45-year-old, with postraumatic osteoarthritis, who was consented to undergo total knee arthroplasty after a removal of hardware. PREOPERATIVE DIAGNOSIS: Posttraumatic osteoarthritis, right knee. POSTOPERATIVE DIAGNOSIS: Posttraumatic osteoarthritis, right knee. PROCEDURE PERFORMED: Right total knee arthroplasty. ESTIMATED BLOOD LOSS: 25 mL. COMPLICATIONS: ANESTHESIA: Regional and general. ASSISTANTS: TERENCE Melo. SPECIMENS: IMPLANTS USED: Greg Triathlon press-fit posterior stabilized, 12/22/12. TOURNIQUET TIME: 75 minutes. FLUIDS: 1 L. PROCEDURE IN DETAIL: The patient was brought to the operating room, placed supine on the operative table and prepped and draped in standard sterile fashion. A time-out was called to identify proper site, proper procedure, proper surgeon. IV antibiotics per weight was administered. I began by exsanguinating the limb and insufflating tourniquet to 300 mmHg. I then made a standard midline incision down into the retinaculum and performed a medial parapatellar arthrotomy. He had stiff patellar tendon secondary to prior trauma and depressed and arthritic lateral tibial plateau. I resected the fat pad and then using Whitesides line, I drilled my intramedullary femoral guide and made my distal femoral cut in 5 degrees of valgus. I then sized a size 5 femur and made my anterior, posterior, and chamfer cuts, protecting the soft tissues at all times. Following this, I made a box cut removing the PCL. I turned my attention to the tibia, where 2 mm was taken off the lateral side in line with tibial plateau resulting in a moderate resection of the medial tibial plateau. I trialed a size 4 tibia. Being the lateral tibial plateau was somewhat diminutive, I had downsized slightly. I trialed this and was happy with the stability and range with an 11 mm insert. Therefore, I resurfaced the undersurface of the patella and again retrialed and was happy with the tracking. Femoral lug holes and tibial canal were prepared, followed by implantation of the tibia and femur in standard press-fit fashion, and I press-fit the patella in place. I then trialed an 11 and 13. I was happiest with the 13. He had excellent medial and lateral stability, full extension, and 120 degrees of motion, slightly limited by his preoperative contracture. I placed my final implant, removed all instrumentation. Local TXA was applied, and 3-minute iodine soak was performed. A layered closure was performed with aly on the skin. The patient was awakened from sedation and brought to recovery room in stable condition. There were no known complications. MD MACK Maradiaga/RUFINO / [id number]
== END 2020-08-06 14:09 | disposition home health service (06) | DRG 302 ==
LOC: HO.SSSA 07:00 → HO.S3 12:11
PROVIDERS: Nurse Practitioner; Physician Assistant; Admitting Provider Orthopaedic Surgery; PCP Internal Medicine; Visit Provider Orthopaedic Surgery
PROC: 0SRC0JA Replacement of Right Knee Joint with Synthetic Substitute, Uncemented, Open Approach (ICD-10-PCS; CPT 27447; principal; 2020-08-04 09:30)
DX: M17.31 Unilateral post-traumatic osteoarthritis, right knee (principal); Z20.828 Contact with and (suspected) exposure to other viral communicable diseases; Z87.891 Personal history of nicotine dependence; Z79.899 Other long term (current) drug therapy
CPT/HCPCS: 36415; 73560; 80048; 85025; 86850; 86900; 86901; 87635; 87640; 87641; 88305; 88311; 97110; 97116; 97161; C1776; J0690; J1170; J2250

== ENCOUNTER → 2020-08-27 10:00 | Outpatient (BNVA) | payer OTHER, SELFPAY | PROVIDERS: PCP Internal Medicine; Visit Provider Physician Assistant | DX: Z47.1 Aftercare following joint replacement surgery (principal); Z96.651 Presence of right artificial knee joint | CPT/HCPCS: 99212 ==

== ENCOUNTER → 2020-09-24 13:10 | Outpatient (BNVA) | payer OTHER, SELFPAY | PROVIDERS: Visit Provider Orthopaedic Surgery | DX: Z47.1 Aftercare following joint replacement surgery (principal); Z96.651 Presence of right artificial knee joint | CPT/HCPCS: 99212 ==

== ENCOUNTER → 2020-10-29 12:55 | Outpatient (BNVA) | payer MEDICARE, OTHER, MEDICAID, SELFPAY | PROVIDERS: Visit Provider Orthopaedic Surgery | DX: Z47.1 Aftercare following joint replacement surgery (principal); Z96.651 Presence of right artificial knee joint | CPT/HCPCS: 99212 ==

== ENCOUNTER 2020-11-03 09:09 | Day surgery (SDC) | payer MEDICARE, MEDICAID, OTHER, SELFPAY ==
--- NOTE | 2020-11-02 08:44 | HO.ANESPROP2 ---
Documented by User: Celina Higgins 11/02/20 08:46 HPI - Anesthesia Eval Consult details Narrative: 45yo M for Right Knee Manipulation S/P R TKA 08/04/20 with spinal block PMFSH Active Problems Active Problems: All Active Problems (Updated 08/07/20 @ 00:01 by Mike Chiang) Status post total right knee replacement (Acute) Past Medical History Medical History Post-traumatic osteoarthritis of right knee Tibia fracture Family History Family History Father No problems noted. Mother Diabetes mellitus Surgical History Surgical History History of removal of retained hardware History of total right knee replacement S/P hernia repair Social History Social History Alcohol intake: never Smoking Status: Former smoker Tobacco Type: Cigarette Years Smoked: 25 Second Hand Smoke Exposure: No Use of substances other than those prescribed or required for medical reasons: No Advance Directives: No Advance Directives Information Provided: Yes service: No Current occupational status: employed Current occupation: [employer] Allergies Allergy/AdvReac Type Severity Reaction Status Date / Time No Known Allergies Allergy Verified 10/29/20 13:02 [No Known Allergies*] Home Medications Medication Instructions Recorded Confirmed Last Taken Type citalopram 20 mg PO DAILY 08/04/20 08/04/20 Unknown History prazosin 1 mg PO BEDTIME 08/04/20 08/04/20 Unknown History Exam Exam Date and Time: November 02, 2020 0844 Pertinent Lab Results Pertinent Lab Results: Laboratory Tests 08/06/20 08/06/20 05:55 05:55 WBC 17.8 H Hgb 10.7 L Hct 31.7 L Plt Count 163 D Sodium 133 L Potassium 3.8 Chloride 100 Carbon Dioxide 27 BUN 7 L Creatinine 0.82 Narrative Narrative: EKG 06/2020: Sinus bradycardia Otherwise normal ECG No previous ECGs available Assessment and Plan Assessment Anesthesia Assessment: Chart Reviewed Documented by User: Portillo Samano MD 11/03/20 11:12 PMFSH Past Medical History Medical History Post-traumatic osteoarthritis of right knee Tibia fracture Family History Family History Father No problems noted. Mother Diabetes mellitus Surgical History Surgical History History of removal of retained hardware History of total right knee replacement S/P hernia repair Social History Social History Alcohol intake: never Smoking Status: Former smoker Tobacco Type: Cigarette Years Smoked: 25 Second Hand Smoke Exposure: No Use of substances other than those prescribed or required for medical reasons: No Advance Directives: No Advance Directives Information Provided: Yes service: No Current occupational status: employed Current occupation: [employer] Allergies Allergy/AdvReac Type Severity Reaction Status Date / Time No Known Allergies Allergy Verified 10/29/20 13:02 [No Known Allergies*] Home Medications Medication Instructions Recorded Confirmed Last Taken Type citalopram 20 mg PO DAILY 08/04/20 08/04/20 Unknown History prazosin 1 mg PO BEDTIME 08/04/20 08/04/20 Unknown History Exam Airway Mallampati Class: II TM Dist: >3cm Neck ROM: Full Partial: Upper and Lower Loose/Missing/Broken Teeth: Yes Assessment and Plan Assessment Anesthesia Assessment: Anesthesia Plan Discussed and Chart Reviewed Final Anesthetic Review NPO: Yes ASA Class: II Final Preanesthetic Review: No Changes in Pt Med Stat, Meds/Allgs Chart Reviewed, Consent Obtained/Reviewed and Anes Risks/Benef Reviewed Patient Risk: Low Procedure Risk: Low Anesthetic Plan Anesthetic Plan: GA Disposition: Standard PACU
[2020-11-03] VITALS (7 sets, daily range): BP systolic 116–134; BP diastolic 61–89; PULSE 52–69; RESP 16; TEMP 36.6; O2SAT 96–99; BMI 31.6
[2020-11-03] MEDS: Lactated Ringers 1,000 ML 100 ML IVCONT (10:30)
--- NOTE | 2020-11-03 11:02 | PM.OP ---
Brief Operative Note Date of Service: 11/03/20 Pre-op diagnosis: left knee stiffness Post-op diagnosis: same Procedure: left knee manipulation Surgeon: Doroteo Rothman MD Anesthesia: other (GANA) Estimated blood loss (mL): 0 Pathology: none sent Condition: stable Disposition: PACU
--- NOTE | 2020-11-03 11:22 | W.PM.OPN ---
Operative Note Operative Note Date of Service: 11/03/20 Narrative: Date of Service: 11/03/20 Pre-op diagnosis: left knee stiffness Post-op diagnosis: same Procedure: left knee manipulation Surgeon: Doroteo Rothman MD Anesthesia: other (GANA) Estimated blood loss (mL): 0 Pathology: none sent Condition: stable Disposition: PACU Indications: Didier is almost 3 mo s/p right knee arthroplasty with 80 deg flexion. He was stiff pre-operatively. He was consented to undergo manipulation. Procedure in detail: Patient is brought to the operating room and placed supine on the hospital bed. A time-out was called in for per se procedure per surgeon and once he was adequately anesthetized I flexed the hip up and left the knee bend passively to approximately 80 degrees. I then gently flexed it to approximately 120. There was about a 10 degree rebound but he rested passively at 110 degrees which was his preoperative motion. He was then awakened from anesthesia and brought to recovery room in stable condition there were no known complications.
[2020-11-03] MEDS: Acetaminophen 325 MG TABLET 650 MG PO (11:27)
[2020-11-03] MEDS: HYDROmorphone HCl 0.5 MG/0.5 ML SYRINGE 0.25 MG IVPUSH (11:28)
[2020-11-03] MEDS: Ketorolac Tromethamine 15 MG/ML VIAL IVPUSH (11:29)
--- NOTE | 2020-11-03 12:54 | PC.NURSE ---
Discharge instructions given with the assistance of [facility] Grain Cleaner And Transfer Operator
== END 2020-11-03 12:50 | disposition home or self-care (01) ==
PROVIDERS: PCP Internal Medicine; Visit Provider Orthopaedic Surgery
PROC: (CPT 27570; principal; 2020-11-03 12:00)
DX: M25.662 Stiffness of left knee, not elsewhere classified (principal); Z96.651 Presence of right artificial knee joint; M17.31 Unilateral post-traumatic osteoarthritis, right knee; F17.210 Nicotine dependence, cigarettes, uncomplicated
CPT/HCPCS: 27570; J1170; J1885; J3010

== ENCOUNTER → 2020-11-12 10:38 | Outpatient (BNVA) | payer MEDICARE, OTHER, SELFPAY | PROVIDERS: PCP Internal Medicine; Visit Provider Physician Assistant | DX: Z47.1 Aftercare following joint replacement surgery (principal); Z98.890 Other specified postprocedural states; Z96.651 Presence of right artificial knee joint | CPT/HCPCS: 99212 ==

== ENCOUNTER → 2020-11-26 11:07 | Outpatient (BNVA) | payer OTHER, SELFPAY | PROVIDERS: PCP Internal Medicine; Visit Provider Orthopaedic Surgery | DX: Z47.1 Aftercare following joint replacement surgery (principal); Z96.651 Presence of right artificial knee joint | CPT/HCPCS: 99212 ==

== ENCOUNTER 2020-11-26 13:00 | Outpatient (RCR) | payer MEDICARE, OTHER, SELFPAY ==
--- NOTE | 2020-09-25 15:03 | MHC.PT.EP ---
[facility] [place] Office [place] Office [place] Office [address] Devika Ledezma [address] [phone] F: [phone] F: [phone] F: [phone] F: [phone] Physical Therapy Plan of Care Date of Evaluation: 09/25/20 Date of Surgery: 08/04/20 Diagnosis: S/P RIGHT TKR Assessment: 45 YO MALE REF TO PT S/P Rt TKR ON 08/04/20- SERVICES THROUGH [facility]. HE WAS D/C'D HOME W SERVICES THROUGH [facility] AND IS NOW REF TO OUT-Pt PT ( HE HAD AN ORTHO F/U YESTERDAY). Pt HAS SIGNIF SCAR TISSUE HYPOMOBILITY IN Rt ANT KNEE AND DISTAL LE LIMITING Rt KNEE ROM- RESIDUAL EDEMA IN RIGHT KNEE , DECR STRENGTH, AND PAIN INFLUENCING MOBILITY. FUNCTIONALLY, Pt HAS DIFFIC W STAIR MGMT, ALTERED GAIT MECHANICS W A W/WALKER, DIFFIC W TRANSITIONAL MVMTS, DECR STANDING JANNY, AND REQ ASSIST W DONNING/DOFFING SHOES/SOCKS. HE IS A VERY GOOD CANDIDATE FOR SKILLED PT TO ADDRESS ROM, STRENGTH, SCAR MOBILITY, DEV A HEP, AND ADVANCE FUNCTIONAL INDEP. Frequency and Duration: The patient will be seen 2x WK x 5 WKS Short Term Goals: Pt JULIO IMPROVED AROM Rt KNEE 0* EXT AND 110* FLEX IN 2 WKS Pt'S PAIN 2-3/10 IN Rt KNEE IN 2 WKS Pt DEMON INDEP Rt SCAR/PATELLAR MOB IN 2 WKS Police Patrol Lieutenant Goals: Pt INDEP HEP AND WFL W FUNCT STRENGTH IN 5 WKS Pt RESUME REG ADLs AND FUNCTIONAL MOB EVIDENT W IMPROVED LEFT SCORE BY 20 POINTS ( 18/80 AT EVAL) Pt DEMON APPROP GAIT MECH W LEAST REST AD ON LEVEL AND UNEVEN SURFACES IN 4WKS Treatment Plan: Modalities to reduce pain, spasms and effusion. Manual therapy to restore motion and function. Therapeutic exercise to improve strength and flexibility. Neuromuscular re-education for posture and balance. Therapeutic activities to return to functional activities of daily living. Electronically signed by: Theresa Fuentes,PT Please sign and return to therapist. Thank you for your referral.
--- NOTE | 2020-12-23 17:44 | MHC.PT.DC ---
[facility] [place] Office [place] Office [place] Office [address] Devika Ledezma [address] [phone] F: [phone] F: [phone] F: [phone] F: [phone] Physical Therapy Discharge Report Diagnosis: S/P RIGHT TKR Date of Surgery: 08/04/20 Date of Evaluation: 09/25/20 Date of Discharge: 12/23/20 Treatments to Date: 24 Cancellations to Date: 5 No Shows to Date: 0 Discharge Status: Improved Function Independent with HEP Visit Non-compliance Discharge Summary: Pt did not f/u with further visits. He was making improvements in functional mobility but his knee AROM was still limited 0-5-90 Electronically signed by: Alicia Goodman PT Please sign and return to therapist. Thank you for your referral.
== END 2020-12-23 17:45 | disposition home or self-care (01) ==
LOC: HO.PT 13:00
PROVIDERS: Visit Provider Physician Assistant
DX: Z47.1 Aftercare following joint replacement surgery (principal); Z96.651 Presence of right artificial knee joint
CPT/HCPCS: 97110; 97140; 97162; 97530; J1100

== ENCOUNTER 2021-05-24 11:40 | Outpatient (REF) | payer MEDICARE, MEDICAID, SELFPAY ==
[2021-05-24 11:53] LABS: MANUAL DIFF FLAG NO
[2021-05-24 12:15] LABS: Basophils Absolute Auto 0.1 X10*3/uL (0.0-0.2); Basophils Percent Auto 0.7 % (0-2); Eosinophils Absolute Auto 0.1 X10*3/uL (0.0-0.4); Hematocrit 42.8 % (42-52); Hemoglobin 14.2 g/dl (14.0-18.0); Imm Gran Abs Auto 0.05 X10*3/uL (0.00-0.03); Imm Gran Pct Auto 0.5 % (0.0-0.4); Lymphocytes Absolute Auto 3.6 X10*3/uL (1.2-4.9); Lymphocytes Percent Auto 34.3 % (20-40); Mean Corpuscular HGB Conc 33.2 g/dl (31.0-36.0); Mean Corpuscular Hemoglobin 30.7 pg (27.0-33.0); Mean Corpuscular Volume 92.4 fL (80-98); Mean Platelet Volume 10.1 fL (9.4-12.4); Monocytes Absolute Auto 0.9 X10*3/uL (0.1-1.2); Monocytes Percent Auto 8.1 % (2-11); Neutrophils Absolute Auto 5.8 X10*3/uL (2.0-8.3); Neutrophils Percent Auto 55.4 % (45-73); Platelet Count 246 X10*3/uL (160-400); Red Blood Count 4.63 X10*6/uL (4.60-5.80); Red Cell Distribution Width 13.9 % (11.0-16.0); White Blood Count 10.5 X10*3/uL (4.8-10.8)
[2021-05-24 12:59] LABS: Alanine Aminotransferase 30 U/L (0-40); Albumin Level 4.2 g/dL (3.5-5.0); Alkaline Phosphatase 97 U/L (39-117); Anion Gap 10 (12-20); Aspartate Amino Transferase 20 U/L (5-37); Bilirubin Total < 0.2 mg/dL (0.0-1.0); Blood Urea Nitrogen 16 mg/dL (9-16); Calcium 9.3 mg/dL (8.4-10.2); Carbon Dioxide 25 mmol/L (22-29); Chloride 111 mmol/L (96-108); Cholesterol 204 mg/dL; Estimated Glomerular Filt Rate > 60; Glucose Fasting 97 mg/dL (60-99); HDL Cholesterol 36 mg/dL; LDL Cholesterol Calculated 143 mg/dl; Potassium 4.6 mmol/L (3.3-5.1); Sodium 141 mmol/L (135-145); Total Protein 7.1 g/dL (6.5-8.0); Triglycerides 125 mg/dL
[2021-05-30 14:22] LABS: Vitamin D 25-OH, D2 <4 ng/mL; Vitamin D 25-OH, D3 33 ng/mL; Vitamin D 25-OH, Total 33 ng/mL (30-100)
== END 2021-05-24 11:41 | disposition home or self-care (01) ==
LOC: HO.LAB 11:40
PROVIDERS: PCP Internal Medicine; Visit Provider Internal Medicine
DX: D64.9 Anemia, unspecified (principal); E78.5 Hyperlipidemia, unspecified; E55.9 Vitamin D deficiency, unspecified
CPT/HCPCS: 36415; 80053; 80061; 82306; 85025

== ENCOUNTER 2021-05-28 08:53 | Outpatient (REF) | payer MEDICARE, MEDICAID, SELFPAY ==
--- NOTE | ~2021-05-28 | XR_ITS ---
EXAMINATION: KNEE X-RAY CLINICAL INFORMATION: Right knee replacement COMPARISON: Previous x-ray most recent July 2020 TECHNIQUE: Standing AP view of both knees and lateral and sunrise view of the right knee FINDINGS: Right knee: There is a 3 component right knee replacement in satisfactory position. No acute fracture or dislocation is seen. There is no significant joint effusion. There is evidence of old trauma with healed fractures of the right proximal tibia and fibula that appears unchanged. Standing view of the left knee is unremarkable. XR/XR knee RT 2V IMPRESSION: Satisfactory appearance of right knee replacement. Evidence of old trauma to the right proximal tibia and fibula.
--- NOTE | ~2021-05-28 | XR_ITS ---
EXAMINATION: KNEE X-RAY CLINICAL INFORMATION: Right knee replacement COMPARISON: Previous x-ray most recent July 2020 TECHNIQUE: Standing AP view of both knees and lateral and sunrise view of the right knee FINDINGS: Right knee: There is a 3 component right knee replacement in satisfactory position. No acute fracture or dislocation is seen. There is no significant joint effusion. There is evidence of old trauma with healed fractures of the right proximal tibia and fibula that appears unchanged. Standing view of the left knee is unremarkable. XR/XR knee standing BI IMPRESSION: Satisfactory appearance of right knee replacement. Evidence of old trauma to the right proximal tibia and fibula.
== END 2021-05-28 08:54 | disposition home or self-care (01) ==
LOC: HO.HOSX 08:53
PROVIDERS: Visit Provider Orthopaedic Surgery
DX: Z96.651 Presence of right artificial knee joint (principal)
CPT/HCPCS: 73560; 73565; 99212

== ENCOUNTER 2022-02-01 09:44 | Outpatient (REF) | payer MEDICARE, MEDICAID, SELFPAY ==
[2022-02-01 10:12] LABS: MANUAL DIFF FLAG NO
[2022-02-01 10:28] LABS: Basophils Absolute Auto 0.1 X10*3/uL (0.0-0.2); Basophils Percent Auto 0.6 % (0-2); Eosinophils Absolute Auto 0.1 X10*3/uL (0.0-0.4); Eosinophils Percent Auto 0.8 % (0-4); Hemoglobin 14.9 g/dl (14.0-18.0); Imm Gran Abs Auto 0.05 X10*3/uL (0.00-0.03); Imm Gran Pct Auto 0.4 % (0.0-0.4); Lymphocytes Absolute Auto 3.8 X10*3/uL (1.2-4.9); Lymphocytes Percent Auto 31.2 % (20-40); Mean Corpuscular HGB Conc 32.4 g/dl (31.0-36.0); Mean Corpuscular Hemoglobin 30.3 pg (27.0-33.0); Mean Corpuscular Volume 93.7 fL (80.0-98.0); Mean Platelet Volume 10.2 fL (9.4-12.4); Monocytes Percent Auto 8.3 % (2-11); Neutrophils Absolute Auto 7.2 x10*3/uL (2.0-8.3); Neutrophils Percent Auto 58.7 % (45-73); Platelet Count 271 X10*3/uL (160-400); Red Blood Count 4.91 X10*6/uL (4.60-5.80); Red Cell Distribution Width 13.3 % (11.0-16.0); White Blood Count 12.3 X10*3/uL (4.8-10.8)
[2022-02-01 11:03] LABS: Alanine Aminotransferase 18 U/L (0-40); Albumin Level 4.4 g/dL (3.5-5.0); Alkaline Phosphatase 102 U/L (39-117); Anion Gap 10 (12-20); Aspartate Amino Transferase 13 U/L (5-37); Bilirubin Total 0.5 mg/dL (0.0-1.0); Blood Urea Nitrogen 13 mg/dL (9-16); Calcium 9.2 mg/dL (8.4-10.2); Carbon Dioxide 26 mmol/L (22-29); Chloride 108 mmol/L (96-108); Cholesterol 227 mg/dL; Estimated Glomerular Filt Rate > 60; Glucose Fasting 99 mg/dL (60-99); HDL Cholesterol 32 mg/dL; LDL Cholesterol Calculated 153 mg/dl; Potassium 4.4 mmol/L (3.3-5.1); Sodium 140 mmol/L (135-145); Total Protein 7.3 g/dL (6.5-8.0); Triglycerides 213 mg/dL
== END 2022-02-01 09:45 | disposition home or self-care (01) ==
LOC: HO.LAB 09:44
PROVIDERS: PCP Internal Medicine; Visit Provider Internal Medicine
DX: E78.5 Hyperlipidemia, unspecified (principal); D64.9 Anemia, unspecified
CPT/HCPCS: 36415; 80053; 80061; 85025

== ENCOUNTER 2022-08-03 08:41 | Outpatient (REF) | payer MEDICARE, MEDICAID, SELFPAY ==
[2022-08-03 10:00] LABS: Alanine Aminotransferase 17 U/L (0-40); Alkaline Phosphatase 90 U/L (39-117); Anion Gap 10 (12-20); Aspartate Amino Transferase 15 U/L (5-37); Bilirubin Total 0.6 mg/dL (0.0-1.0); Blood Urea Nitrogen 12 mg/dL (9-16); Calcium 9.7 mg/dL (8.4-10.2); Carbon Dioxide 27 mmol/L (22-29); Chloride 110 mmol/L (96-108); Cholesterol 194 mg/dL; Estimated Glomerular Filt Rate > 60; Glucose Fasting 94 mg/dL (60-99); HDL Cholesterol 36 mg/dL; LDL Cholesterol Calculated 140 mg/dl; Potassium 4.6 mmol/L (3.3-5.1); Sodium 142 mmol/L (135-145); Total Protein 6.4 g/dL (6.5-8.0); Triglycerides 91 mg/dL
== END 2022-08-03 08:42 | disposition home or self-care (01) ==
LOC: HO.LAB 08:41
PROVIDERS: PCP Internal Medicine; Visit Provider Internal Medicine
DX: E66.9 Obesity, unspecified (principal); E78.5 Hyperlipidemia, unspecified; Z68.31 Body mass index [BMI] 31.0-31.9, adult
CPT/HCPCS: 36415; 80053; 80061

== ENCOUNTER 2023-02-28 09:52 | Outpatient (AMB) | payer MEDICARE, MEDICAID, SELFPAY ==
[2023-02-28 09:55] VITALS: BP 100/68; PULSE 76; O2SAT 98; BMI 28.0
--- NOTE | 2023-02-28 09:55 | A.OFFPC_ITS ---
Vital Signs 02/28/23 09:55 Height 5 ft 8 in Weight 184 lb 0.4 oz BMI 28.0 BP 100/68 Blood Pressure Location Lt brachial Position Sitting Pulse 76 Pulse Source Pulse Oximeter Temp Source Skin Pulse Oximetry (%) 98 Oxygen Delivery Method Room Air Intake Visit Reasons: Annual PE Intake Note: Patient is here today for a physical. 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 Language: Door Liner Name: [email or web address] [id number] Information Interpreted: non-clinical & clinical Allergies No Known Allergies [No Known Allergies*] Allergy (Verified 02/28/23 09:55) Tobacco use date assessed: 02/28/23 Dental Screening Dental Screen Date: 02/28/23 Did you have a dental visit in the last 12 months?: No Did you have a dental problem in the last 6 months where you did not have access to dental care?: No Was dental information given to patient?: Patient has dentist HPI HPI Comments History of Present Illness Details [age] year male past medical history significant for anemia, dyslipidemia, depression and chronic leg pain. Patient as seen in July. Patient presents today for physical exam. Patient ambulates with cane for gait instability for long distances. Denies CP,palpitations,sob and syncope. Colonoscopy: Referral entered Eye exam: 2 years, recommended to get updated eye exam every couple of years. TDAP current;2016 [facility] Medical History Anemia Chronic leg pain Class 1 obesity with body mass index (BMI) of 31.0 to 31.9 in adult Constipation by delayed colonic transit Dyslipidemia Mild recurrent major depression Post-traumatic osteoarthritis of right knee Tibia fracture Surgical History History of removal of retained hardware History of total right knee replacement S/P hernia repair Family History Father No problems noted. Mother Diabetes mellitus Social History Housing: Apartment Are you a primary critical care nurse specialist to a significant other at home: No Do you presently have visiting nurse or other home services: No Alcohol intake: current Alcohol intake frequency: holidays/special occasions only Alcohol type: beer Patient Tobacco Use Status: Current someday Tobacco user Tobacco use type: Cigarette Years Smoked: 25 e-Cigarette/Vaping Use: Never Used Second Hand Smoke Exposure: No service: No Current occupational status: disabled Current occupation: [employer] Cognitive needs: Yes Hearing needs: No Vision needs: Yes Questionnaire PHQ-9 Over the last 2 weeks, how often have you been bothered by any of the following problems? 1. Little interest or pleasure in doing things: not at all 2. Feeling down, depressed, or hopeless: not at all 3. Trouble falling or staying asleep, or sleeping too much: not at all 4. Feeling tired or having little energy: not at all 5. Poor appetite or overeating: not at all 6. Feeling bad about yourself - or that you are a failure or have let yourself or your family down: not at all 7. Trouble concentrating on things, such as reading the newspaper or watching television: not at all 8. Moving or speaking so slowly that other people could have noticed. Or the opposite - being so fidgety or restless that you have been moving around a lot more than usual: not at all 9. Thoughts that you would be better off or of hurting yourself in some way: not at all Total score: 0 Depression Screening Interpretation: Negative 54096 - PHQ-9 Billing: Yes Source: Developed by Drs. Bhargav Kaplan, Keesha Amaya, Herbert Alaniz and colleagues, with an educational gabrielle from [employer]. Thrive Questionnaire Date Thrive assessed: 02/28/23 I am a: Patient What is your living situation today?: I have a steady place to live Within the past 12 months, did the food you bought not last and you didn't have the money to get more?: Never true Within the past 12 months, did you worry whether your food would run out before you got money to buy more?: Never true AUDIT C Alcohol Use Questionnaire (AUDIT-C) 1. How often do you have a drink containing alcohol?: Monthly or less 2. How many drinks containing alcohol do you have on a typical day when you are drinking?: 3 or 4 3. How often do you have six or more drinks on one occasion?: Never Total Score: 2 Score Reviewed/Action Taken: Yes LA-7 AMB Questionnaire LA-7 Date LA - 7 assessed: 02/28/23 Feeling nervous, anxious, or on edge: 0 = Not at all Not being able to stop or control worryin = Not at all Worrying too much about different things: 0 = Not at all Trouble relaxin = Not at all Being so restless that it is hard to sit still: 0 = Not at all Becoming easily annoyed or irritable: 0 = Not at all Feeling afraid as if something awful might happen: 0 = Not at all Total LA-7 score (0-4 normal; 5-9 mild; 10-14 moderate; 15-21 severe): 0 Source: Developed by Drs. Bhargav Kaplan, Keesha Amaya, Herbert Alaniz and colleagues, with an educational gabrielle from [employer]. LA-7 Assessment Billing LA-7 Assessment Tool: LA-7 Assessment 06970 Review of Systems Const Denies chills, Denies fatigue, Denies fever(s) and Denies poor appetite Eyes Denies no additional complaints ENT Reports Normal hearing present Card Denies chest pain, Denies syncope, Denies rapid heart rate and Denies dyspnea Resp Denies cough and Denies dyspnea GI Denies change in stool character, Denies constipation, Denies diarrhea, Denies nausea and Denies vomiting Denies dysuria, Denies urinary frequency and Denies urinary urgency Neuro Reports Normal hearing present, Denies confusion and Denies syncope Psych Denies confusion Endo Denies fatigue Physical exam (Primary Care) Vital Signs: Last Vital Signs Pulse 76 02/28/23 09:55 BP 100/68 02/28/23 09:55 Pulse Ox 98 02/28/23 09:55 Oxygen Delivery Method Room Air 02/28/23 09:55 BMI result Body Mass Index 28.0 Tobacco/Smoking Status: Tobacco use Status Tobacco use date assessed 02/28/23 02/28/23 10:00 Patient Tobacco Use Status Current someday Tobacco 02/28/23 10:00 Tobacco use type Cigarette 02/28/23 10:00 e-Cigarette/Vaping Use Never Used 02/28/23 10:00 PHQ-9: PHQ-9 Score PHQ-9: Total score 0 02/28/23 10:17 Depression Screening Interpretation: Negative Thrive Assessment: Date of Thrive Assessment Date Thrive assessed 02/28/23 02/28/23 10:00 Const General: No confusion Orientation/consciousness: No confusion HENMT Head: Yes normocephalic and Yes atraumatic Ears: external ears normal and TM's normal bilaterally General nose exam: Normal external nose present and Normal nasal mucous membranes and turbinates present Face and sinus: Yes normal facial exam and Yes sinuses nontender Mouth: moist mucous membranes Throat: Yes tonsils normal Eyes Conjunctivae: conjunctivae normal Sclerae: sclerae normal Pupils: Equal, round and reactive pupils present and Pupils normal by confrontation EOM: EOMs intact bilaterally Direct Ophthalmoscopy: normal light reflex Neck Neck: Yes no lymphadenopathy and Yes supple Thyroid: Thyroid normal Chest Chest palpation & inspection: normal inspection of the chest Resp Effort & Inspection: normal respiratory effort Auscultation: clear to auscultation bilaterally, no crackles, no rhonchi and no wheezes Cardio Rate: regular rate Rhythm: regular rhythm Peripheral pulses: radial pulses present and dorsalis pedis present GI Inspection: Yes normal to inspection Palpation (GI): Soft to palpation, nontender and No hepatosplenomegaly present Auscultation: normoactive bowel sounds Skin General skin exam: no rashes or lesions noted Neuro General: No confusion Cranial nerves: Yes Equal, round and reactive pupils present and Yes Normal hearing present Cognition (Neuro): normal cognition Gait exam (Neuro): Normal gait present Motor exam (neuro): 5/5 motor strength present throughout Deep tendon reflexes (DTR's): Right brachioradialis reflex intensity grade: 2+, Left brachioradialis reflex intensity grade: 2+, Right patellar reflex intensity grade: 2+ and Left patellar reflex intensity grade: 2+ Extrem General: No edema Assessment and Plan Assessment & Plan (1) Dyslipidemia: Code(s): E78.5 - Hyperlipidemia, unspecified Plan: Continue on rosuvastatin. Avoid fried foods, chicken skin, eggs, butter,margarine, pastries and? red meat. LDL in July 140, LDL < 130. Repeat fasting labs ordered. (2) Anemia: Code(s): D64.9 - Anemia, unspecified Plan: Follow up CBC ordered. (3) Mild recurrent major depression: Code(s): F33.0 - Major depressive disorder, recurrent, mild Plan: Ctoninue on current medications and continue to follow with counseling. (4) Physical exam, annual: Code(s): Z00.00 - Encounter for general adult medical examination without abnormal findings Plan: Follow up in 1 year Plan Follow up in 6 months Orders: Orders Comprehensive [place]. Panel Fast Today E78.5 - Hyperlipidemia, unspecified Lipid Panel Today Z13.220 - Encounter for screening for lipoid disorders TSH reflex Free T4 Today Z13.29 - Encounter for screening for other suspected endocrine disorder Complete Blood Count Auto Diff Today D64.9 - Anemia, unspecified Referrals Gastroenterology Referral Z12.11 - Encounter for screening for malignant neoplasm of colon Coding Level of Care Code Est Pt Prev Care 40-64y(85267) Diagnoses Dyslipidemia E78.5 Anemia D64.9 Mild recurrent major depression F33.0 Physical exam, annual Z00.00 Additional Codes LA-7 Assessment Billing - LA-7 Assessment Tool: LA-7 Assessment 61768 ( [id number])
== END 2023-02-28 10:34 | disposition home or self-care (01) ==
PROVIDERS: PCP Internal Medicine; Visit Provider Nurse Practitioner Family
DX: E78.5 Hyperlipidemia, unspecified (principal); D64.9 Anemia, unspecified; F33.0 Major depressive disorder, recurrent, mild; Z00.00 Encounter for general adult medical examination without abnormal findings
CPT/HCPCS: 99396

== ENCOUNTER 2023-02-28 10:31 | Outpatient (REF) | payer OTHER, SELFPAY ==
[2023-02-28 10:49] LABS: MANUAL DIFF FLAG NO
[2023-02-28 12:27] LABS: Basophils Absolute Auto 0.1 X10*3/uL (0.0-0.2); Basophils Percent Auto 0.3 % (0-2); Eosinophils Absolute Auto 0.1 X10*3/uL (0.0-0.4); Eosinophils Percent Auto 0.5 % (0-4); Hematocrit 45.4 % (42.0-52.0); Hemoglobin 14.9 g/dl (14.0-18.0); Imm Gran Abs Auto 0.11 X10*3/uL (0.00-0.03); Imm Gran Pct Auto 0.6 % (0.0-0.4); Lymphocytes Absolute Auto 2.8 X10*3/uL (1.2-4.9); Mean Corpuscular HGB Conc 32.8 g/dl (31.0-36.0); Mean Corpuscular Hemoglobin 30.6 pg (27.0-33.0); Mean Corpuscular Volume 93.2 fL (80.0-98.0); Mean Platelet Volume 10.6 fL (9.4-12.4); Monocytes Absolute Auto 1.1 X10*3/uL (0.1-1.2); Monocytes Percent Auto 6.5 % (2-11); Neutrophils Absolute Auto 13.2 x10*3/uL (2.0-8.3); Neutrophils Percent Auto 76.1 % (45-73); Platelet Count 268 X10*3/uL (160-400); Red Blood Count 4.87 X10*6/uL (4.60-5.80); Red Cell Distribution Width 13.3 % (11.0-16.0); White Blood Count 17.3 X10*3/uL (4.8-10.8)
[2023-02-28 13:08] LABS: Alanine Aminotransferase 12 U/L (0-40); Albumin Level 4.1 g/dL (3.5-5.0); Alkaline Phosphatase 87 U/L (39-117); Anion Gap 14 (12-20); Aspartate Amino Transferase 12 U/L (5-37); Bilirubin Total 0.5 mg/dL (0.0-1.0); Blood Urea Nitrogen 12 mg/dL (9-16); Calcium 9.3 mg/dL (8.4-10.2); Carbon Dioxide 24 mmol/L (22-29); Chloride 108 mmol/L (96-108); Cholesterol 211 mg/dL; Estimated Glomerular Filt Rate > 60; Glucose Fasting 88 mg/dL (60-99); HDL Cholesterol 39 mg/dL; LDL Cholesterol Calculated 150 mg/dl; Sodium 142 mmol/L (135-145); Total Protein 7.2 g/dL (6.5-8.0); Triglycerides 111 mg/dL
[2023-02-28 13:25] LABS: TSH reflex Free T4 1.38 uIU/mL (0.32-4.0)
== END 2023-02-28 10:32 | disposition home or self-care (01) ==
LOC: HO.LAB 10:31
PROVIDERS: PCP Internal Medicine; Visit Provider Nurse Practitioner Family
DX: Z13.29 Encounter for screening for other suspected endocrine disorder (principal); Z13.220 Encounter for screening for lipoid disorders; D64.9 Anemia, unspecified; E78.5 Hyperlipidemia, unspecified
CPT/HCPCS: 36415; 80053; 80061; 84443; 85025

== ENCOUNTER → 2023-05-10 12:16 | Outpatient (BNVA) | payer OTHER, SELFPAY | PROVIDERS: PCP Internal Medicine; Visit Provider Physician Assistant ==

== ENCOUNTER 2023-09-05 08:51 | Outpatient (AMB) | payer MEDICARE, MEDICAID, SELFPAY ==
[2023-09-05 08:54] VITALS: BP 108/70; BMI 26.5
--- NOTE | 2023-09-05 08:54 | A.OFFPC_ITS ---
Vital Signs 09/05/23 08:54 Height 5 ft 8 in Weight 174 lb BMI 26.5 BP 108/70 Blood Pressure Location Lt brachial Position Sitting Intake Visit Reasons: Depression, hyperlipidemia Intake Note: Patient here for a follow up Depression, Hyperlipidemia, c/o right hand wrist pain Entry Level Required: No Accompanied by: Self / Same As Patient Allergies No Known Allergies [No Known Allergies*] Allergy (Verified 09/05/23 09:12) Medication List - Last Reconciled 09/05/23 by Shila Owusu MD bisacodyl (Dulcolax (bisacodyl)) 20 mg (4 x 5 mg) PO ONCE 1 day citalopram 20 mg PO DAILY cyclobenzaprine 10 mg PO BEDTIME PRN 30 days miscellaneous medical supply As directed polyethylene glycol 3350 (Miralax) 238 grams PO ONCE PRN 1 day prazosin 1 mg PO BEDTIME rosuvastatin 10 mg PO BEDTIME 90 days [Showerchair shower chair] Tobacco use date assessed: 09/05/23 Dental Screening Dental Screen Date: 09/05/23 Did you have a dental visit in the last 12 months?: Yes Did you have a dental problem in the last 6 months where you did not have access to dental care?: No Was dental information given to patient?: Patient has dentist HPI HPI Comments History of Present Illness Details This is a 48-year-old male with mild recurrent major depression, leukocytosis and dyslipidemia that comes today complaining of right wrist pain that has been present for about a month when he started to work on his floor. This wrist pain is aggravated by extension. Depression has been stable with citalopram and markedly improved. Had leukocytosis last year and this will be repeated. Cholesterol elevated but well controlled with statins and reports no side effects. He walks with a cane for gait stability due to chronic right knee pain. [facility] Medical History Constipation by delayed colonic transit Mild recurrent major depression Chronic leg pain Class 1 obesity with body mass index (BMI) of 31.0 to 31.9 in adult Anemia Dyslipidemia Tibia fracture Post-traumatic osteoarthritis of right knee Surgical History History of total right knee replacement History of removal of retained hardware S/P hernia repair Family History Father No problems noted. Mother Diabetes mellitus Social History Housing: Apartment Are you a primary career technical education teacher to a significant other at home: No Do you presently have visiting nurse or other home services: No Alcohol intake: current Alcohol intake frequency: holidays/special occasions only Alcohol type: beer Comment: pt sleeping Patient Tobacco Use Status: Current someday Tobacco user Tobacco use type: Cigarette Cigarettes Per Day: 5 Years Smoked: 25 e-Cigarette/Vaping Use: Never Used Second Hand Smoke Exposure: No service: No Current occupational status: disabled Current occupation: [employer] Cognitive needs: Yes Hearing needs: No Vision needs: Yes Questionnaire PHQ-9 Over the last 2 weeks, how often have you been bothered by any of the following problems? 1. Little interest or pleasure in doing things: not at all 2. Feeling down, depressed, or hopeless: not at all 3. Trouble falling or staying asleep, or sleeping too much: not at all 4. Feeling tired or having little energy: not at all 5. Poor appetite or overeating: not at all 6. Feeling bad about yourself - or that you are a failure or have let yourself or your family down: not at all 7. Trouble concentrating on things, such as reading the newspaper or watching television: not at all 8. Moving or speaking so slowly that other people could have noticed. Or the opposite - being so fidgety or restless that you have been moving around a lot more than usual: not at all 9. Thoughts that you would be better off or of hurting yourself in some way: not at all Total score: 0 Depression Screening Interpretation: Negative Depression Screening Done: Yes 43334 - PHQ-9 Billing: Yes Source: Developed by Drs. Bhargav Kaplan, Keesha Amaya, Herbert Alaniz and colleagues, with an educational gabrielle from [employer]. Thrive Questionnaire Date Thrive assessed: 09/05/23 I am a: Patient What is your living situation today?: I have a steady place to live Within the past 12 months, did the food you bought not last and you didn't have the money to get more?: Never true Within the past 12 months, did you worry whether your food would run out before you got money to buy more?: Never true Do you have trouble paying for medicines?: No Do you have trouble getting transportation to medical appointments?: No Do you have trouble paying your heating and electricity bill?: No Do you have trouble taking care of your child, family member or friend?: No Do you have trouble with day-to-day activities such as bathing, preparing meals, shopping, managing finances, etc.?: No Are you currently unemployed and looking for a job?: No Are you interested in more education?: No Please select the resources that you would like help with: None AUDIT C Alcohol Use Questionnaire (AUDIT-C) 1. How often do you have a drink containing alcohol?: Monthly or less 2. How many drinks containing alcohol do you have on a typical day when you are drinking?: 3 or 4 3. How often do you have six or more drinks on one occasion?: Never Total Score: 2 Score Reviewed/Action Taken: No LA-7 AMB Questionnaire LA-7 Date LA - 7 assessed: 09/05/23 Feeling nervous, anxious, or on edge: 0 = Not at all Not being able to stop or control worryin = Not at all Worrying too much about different things: 0 = Not at all Trouble relaxin = Not at all Being so restless that it is hard to sit still: 0 = Not at all Becoming easily annoyed or irritable: 0 = Not at all Feeling afraid as if something awful might happen: 0 = Not at all Total LA-7 score (0-4 normal; 5-9 mild; 10-14 moderate; 15-21 severe): 0 Source: Developed by Drs. Bhargav Kaplan, Keesha Amaya, Herbert Alaniz and colleagues, with an educational gabrielle from [employer]. LA-7 Assessment Billing LA-7 Assessment Tool: LA-7 Assessment 84268 Review of Systems Const All systems reviewed & are unremarkable except as noted in HPI and below Eyes Reports no additional complaints, Denies change in vision and Denies other visual disturbances Card Denies chest pain at rest, Denies chest pain with activity, Denies edema, Denies irregular heart rhythm, Denies claudication, Denies dyspnea, Denies dyspnea on exertion, Denies orthopnea, Denies paroxysmal nocturnal dyspnea and Denies slow heart rate Resp Denies cough, Denies dyspnea and Denies dyspnea on exertion GI Denies abdominal pain, Denies change in bowel habits, Denies excessive flatus, Denies nausea and Denies vomiting Denies urinary hesitancy, Denies urinary incontinence and Denies urinary urgency Musc Denies abnormal gait, Denies atrophy, Denies deformity, Reports arthralgias and Denies limited range of motion Skin/Breast Denies bleeding lesions, Denies changing lesions and Denies rash Neuro Denies abnormal gait and Denies lack of coordination Physical exam (Primary Care) Vital Signs: Last Vital Signs BP 108/70 09/05/23 08:54 BMI result Body Mass Index 26.5 Tobacco/Smoking Status: Tobacco use Status Tobacco use date assessed 09/05/23 09/05/23 08:57 Patient Tobacco Use Status Current someday Tobacco 09/05/23 08:57 Tobacco use type Cigarette 09/05/23 08:57 e-Cigarette/Vaping Use Never Used 09/05/23 08:57 PHQ-9: PHQ-9 Score PHQ-9: Total score 0 09/05/23 09:15 Depression Screening Interpretation: Negative Thrive Assessment: Date of Thrive Assessment Date Thrive assessed 09/05/23 09/05/23 09:01 Const Limitations: ambulation with cane Eyes General: appearance normal, both eyes and all related structures Eyelids: Yes eyelids normal Conjunctivae: conjunctivae normal Neck Neck: Yes normal visual inspection and Yes supple Resp Effort & Inspection: normal respiratory effort Auscultation: clear to auscultation bilaterally Cardio Jugular venous distension: no JVD Rate: regular rate Rhythm: regular rhythm Heart sounds: S1 normal heart sound present and S2 normal heart sound present Extrem General: Yes full ROM Office Procedures Flu Questionnaire Does the patient have a severe egg allergy?: No Does the patient have severe life threatening allergies?: No Does the patient have a fever or illness today?: No Has the patient ever had Guillain-Peel Syndrome?: No Has the patient ever had any past reaction to a flu shot?: No Immunizations flu vacc [id number] 6mos up(PF) 60 mcg(15 mcgx4)/0.5 mL IM syringe Performing Provider: Shila Owusu MD [facility] Administered by: ANÍBAL Patterson on 09/05/23 09:24 Dose Route Admin Location Dispensed Lot Number Expiration Date NDC Oncology Patient Navigator 0.5 mL IM Left Deltoid 0.5 mL [id number] 02/18/24 [id number] VIS Given Date VIS Provided VIS Publication Date 09/05/23 Single Vaccine 21 Eligibility Eligibility Date Funding Source Not [facility] Eligible 09/05/23 Private Assessment and Plan Assessment & Plan (1) Mild recurrent major depression: Code(s): F33.0 - Major depressive disorder, recurrent, mild Plan: Continue citalopram. (2) Right wrist pain: Code(s): M25.531 - Pain in right wrist Plan: X-ray ordered. (3) Dyslipidemia: Code(s): E78.5 - Hyperlipidemia, unspecified Plan: Continue statins. Repeat lipid panel. (4) Leukocytosis: Code(s): D72.829 - Elevated white blood cell count, unspecified Plan: Repeat CBC. Orders: Orders Influenza [id number] Immunization Today Z23 - Encounter for immunization Lipid Panel Today E78.5 - Hyperlipidemia, unspecified Comprehensive [place]. Panel Fast Today E78.5 - Hyperlipidemia, unspecified Complete Blood Count Auto Diff Today D72.829 - Elevated white blood cell count, unspecified XR hand wrist RT Today M25.531 - Pain in right wrist Medications: New flu vacc [id number] 6mos up(PF) 0.5 mL IM ONCE 0.5 mL 0RF Z23 - Encounter for immunization Coding Level of Care Code Est Pt Level 4 (99450) Diagnoses Mild recurrent major depression F33.0 Right wrist pain M25.531 Dyslipidemia E78.5 Leukocytosis D72.829 Additional Codes LA-7 Assessment Billing - LA-7 Assessment Tool: AL-7 Assessment 83191 ([id number]) Time Spent (min) 23
== END 2023-09-05 09:19 | disposition home or self-care (01) ==
PROVIDERS: PCP Internal Medicine; Visit Provider Internal Medicine
DX: E78.5 Hyperlipidemia, unspecified (principal); F33.0 Major depressive disorder, recurrent, mild; M25.531 Pain in right wrist; Z23 Encounter for immunization; D72.829 Elevated white blood cell count, unspecified
CPT/HCPCS: 90471; 90686; 99214

== ENCOUNTER 2023-09-05 09:26 | Outpatient (REF) | payer OTHER, SELFPAY ==
--- NOTE | ~2023-09-05 | XR_ITS ---
EXAMINATION: XR WRIST, RIGHT CLINICAL INFORMATION: Right wrist pain COMPARISON: None available. TECHNIQUE: PA, lateral, and oblique views of the right wrist FINDINGS: RIGHT WRIST: The bones and soft tissues are normal. No fracture. Alignment is anatomic. Joint spaces are maintained. No erosions or soft tissue calcifications. XR/XR hand wrist RT IMPRESSION: Normal right wrist.
[2023-09-05 09:39] LABS: MANUAL DIFF FLAG NO
[2023-09-05 10:28] LABS: Basophils Absolute Auto 0.1 X10*3/uL (0.0-0.2); Basophils Percent Auto 0.7 % (0-2); Eosinophils Absolute Auto 0.1 X10*3/uL (0.0-0.4); Eosinophils Percent Auto 1.5 % (0-4); Hematocrit 46.2 % (42.0-52.0); Hemoglobin 15.2 g/dl (14.0-18.0); Imm Gran Abs Auto 0.03 X10*3/uL (0.00-0.03); Imm Gran Pct Auto 0.3 % (0.0-0.4); Lymphocytes Absolute Auto 2.9 X10*3/uL (1.2-4.9); Lymphocytes Percent Auto 31.5 % (20-40); Mean Corpuscular HGB Conc 32.9 g/dl (31.0-36.0); Mean Corpuscular Volume 94.1 fL (80.0-98.0); Mean Platelet Volume 10.6 fL (9.4-12.4); Monocytes Absolute Auto 0.7 X10*3/uL (0.1-1.2); Monocytes Percent Auto 7.7 % (2-11); Neutrophils Absolute Auto 5.3 x10*3/uL (2.0-8.3); Neutrophils Percent Auto 58.3 % (45-73); Platelet Count 257 X10*3/uL (160-400); Red Blood Count 4.91 X10*6/uL (4.60-5.80); Red Cell Distribution Width 13.8 % (11.0-16.0); White Blood Count 9.1 X10*3/uL (4.8-10.8)
[2023-09-05 11:01] LABS: Alanine Aminotransferase 11 U/L (0-40); Albumin Level 4.2 g/dL (3.5-5.0); Alkaline Phosphatase 87 U/L (39-117); Anion Gap 10 (12-20); Aspartate Amino Transferase 13 U/L (5-37); Bilirubin Total 0.3 mg/dL (0.0-1.0); Blood Urea Nitrogen 17 mg/dL (9-16); Calcium 9.2 mg/dL (8.4-10.2); Carbon Dioxide 27 mmol/L (22-29); Chloride 108 mmol/L (96-108); Cholesterol 182 mg/dL (<200); Estimated Glomerular Filt Rate > 60; Glucose Fasting 95 mg/dL (60-99); HDL Cholesterol 46 mg/dL (>40); LDL Cholesterol Calculated 123 mg/dL (<100); Potassium 4.7 mmol/L (3.3-5.1); Sodium 140 mmol/L (135-145); Total Protein 7.2 g/dL (6.5-8.0); Triglycerides 66 mg/dL (<150)
== END 2023-09-05 09:27 | disposition home or self-care (01) ==
LOC: HO.LAB 09:26
PROVIDERS: PCP Internal Medicine; Visit Provider Internal Medicine
DX: M25.531 Pain in right wrist (principal); E78.5 Hyperlipidemia, unspecified; D72.829 Elevated white blood cell count, unspecified
CPT/HCPCS: 36415; 73110; 73130; 80053; 80061; 85025

== ENCOUNTER 2024-01-11 08:42 | Day surgery (SDC) | payer OTHER, SELFPAY ==
[2023-09-29 14:15] VITALS: BMI 28.3
--- NOTE | 2023-10-02 12:06 | P.CONAN_ITS ---
HPI - Anesthesia Eval Consult details Narrative: 48yo M for Colonoscopy PMF Active Problems Active Problems: All Active Problems (Updated 09/05/23 @ 09:21 by Shila Owusu MD) Leukocytosis (Acute) Right wrist pain (Acute) Encounter for screening colonoscopy (Acute) Encounter for Medicare annual wellness exam (Acute) Constipation by delayed colonic transit (Acute) Mild recurrent major depression (Acute) Chronic leg pain (Acute) Class 1 obesity with body mass index (BMI) of 31.0 to 31.9 in adult (Acute) Anemia (Acute) Dyslipidemia (Acute) S/P surgical manipulation of knee joint (Acute) Status post total right knee replacement (Acute) Past Medical History Medical History Constipation by delayed colonic transit Mild recurrent major depression Chronic leg pain Class 1 obesity with body mass index (BMI) of 31.0 to 31.9 in adult Anemia Dyslipidemia Tibia fracture Post-traumatic osteoarthritis of right knee Family History Family History Father No problems noted. Mother Diabetes mellitus Surgical History Surgical History History of total right knee replacement History of removal of retained hardware S/P hernia repair History of Problems with Anesthesia: No Social History Social History Housing: Apartment Are you a primary lawn care worker to a significant other at home: No Do you presently have visiting nurse or other home services: No Alcohol intake: current Alcohol intake frequency: holidays/special occasions only Alcohol type: beer Comment: pt sleeping Patient Tobacco Use Status: Current someday Tobacco user Tobacco use type: Cigarette Cigarettes Per Day: 5 Years Smoked: 25 e-Cigarette/Vaping Use: Never Used Second Hand Smoke Exposure: No service: No Current occupational status: 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 Cognitive needs: Yes Hearing needs: No Vision needs: Yes Meds Allergies Allergy/AdvReac Type Severity Reaction Status Date / Time No Known Allergies Allergy Verified 09/05/23 09:12 [No Known Allergies*] Home Medications Medication Instructions Recorded Confirmed Last Taken Type citalopram 20 mg tablet 20 mg PO DAILY 08/04/20 09/05/23 Unknown History prazosin 1 mg capsule 1 mg PO BEDTIME 08/04/20 09/05/23 Unknown History Exam Height,Weight and Vital Signs: Height 5 ft 8 in Weight 84.368 kg Pertinent Lab Results Pertinent Lab Results: Laboratory Tests 09/05/23 09:38 WBC 9.1 Hgb 15.2 Hct 46.2 Plt Count 257 Sodium 140 Potassium 4.7 Chloride 108 Carbon Dioxide 27 BUN 17 H Creatinine 0.90 Assessment and Plan Assessment Anesthesia Assessment: Chart Reviewed Final Anesthetic Review History of Problems with Anesthesia: No
[2024-01-10 06:56] VITALS: BMI 26.5
--- NOTE | 2024-01-10 10:31 | P.CONAN_ITS ---
Documented by User: Celina Higgins NP 01/10/24 10:32 HPI - Anesthesia Eval Consult details Narrative: 48yo M for Colonoscopy PMFSH Active Problems Active Problems: All Active Problems Leukocytosis (Acute) Right wrist pain (Acute) Encounter for screening colonoscopy (Acute) Encounter for Medicare annual wellness exam (Acute) Constipation by delayed colonic transit (Acute) Mild recurrent major depression (Acute) Chronic leg pain (Acute) Class 1 obesity with body mass index (BMI) of 31.0 to 31.9 in adult (Acute) Anemia (Acute) Dyslipidemia (Acute) S/P surgical manipulation of knee joint (Acute) Status post total right knee replacement (Acute) Past Medical History Medical History Constipation by delayed colonic transit Mild recurrent major depression Chronic leg pain Class 1 obesity with body mass index (BMI) of 31.0 to 31.9 in adult Anemia Dyslipidemia Tibia fracture Post-traumatic osteoarthritis of right knee Family History Family History Father No problems noted. Mother Diabetes mellitus Surgical History Surgical History History of total right knee replacement History of removal of retained hardware S/P hernia repair History of Problems with Anesthesia: No Social History Social History Housing: Apartment Are you a primary career and technology education teacher to a significant other at home: No Do you presently have visiting nurse or other home services: No Alcohol intake: current Alcohol intake frequency: holidays/special occasions only Alcohol type: beer Comment: pt sleeping Patient Tobacco Use Status: Current everyday Tobacco user Tobacco use type: Cigarette Cigarette Packs Per Day: 0.5 Cigarettes Per Day: 10.0 Years Smoked: 25 e-Cigarette/Vaping Use: Never Used Date Education Initiated: 01/11/24 Second Hand Smoke Exposure: No Use of substances other than those prescribed or required for medical reasons: No Are you DNR?: No Advance Directives: No Advance Directives Information Provided: Yes service: No Current occupational status: 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 Cognitive needs: Yes Hearing needs: No Vision needs: Yes Meds Allergies Allergy/AdvReac Type Severity Reaction Status Date / Time No Known Allergies Allergy Verified 09/05/23 09:12 [No Known Allergies*] Home Medications ?Medication ?Instructions ?Recorded ?Confirmed ?Last Taken ?Type citalopram 20 mg tablet 20 mg PO DAILY 08/04/20 01/11/24 Unknown History prazosin 1 mg capsule 1 mg PO BEDTIME 08/04/20 01/11/24 Unknown History Exam Height,Weight and Vital Signs: Height 5 ft 8 in Weight 78.925 kg Pertinent Lab Results Pertinent Lab Results: Laboratory Tests 09/05/23 09:38 WBC 9.1 Hgb 15.2 Hct 46.2 Plt Count 257 Sodium 140 Potassium 4.7 Chloride 108 Carbon Dioxide 27 BUN 17 H Creatinine 0.90 Assessment and Plan Assessment Anesthesia Assessment: Chart Reviewed Final Anesthetic Review History of Problems with Anesthesia: No Documented by User: Crystal Crockett MD 01/11/24 09:58 [facility] Past Medical History Medical History Constipation by delayed colonic transit Mild recurrent major depression Chronic leg pain Class 1 obesity with body mass index (BMI) of 31.0 to 31.9 in adult Anemia Dyslipidemia Tibia fracture Post-traumatic osteoarthritis of right knee Family History Family History Father No problems noted. Mother Diabetes mellitus Surgical History Surgical History History of total right knee replacement History of removal of retained hardware S/P hernia repair Social History Social History Housing: Apartment Are you a primary career and technology education teacher to a significant other at home: No Do you presently have visiting nurse or other home services: No Alcohol intake: current Alcohol intake frequency: holidays/special occasions only Alcohol type: beer Comment: pt sleeping Patient Tobacco Use Status: Current everyday Tobacco user Tobacco use type: Cigarette Cigarette Packs Per Day: 0.5 Cigarettes Per Day: 10.0 Years Smoked: 25 e-Cigarette/Vaping Use: Never Used Date Education Initiated: 01/11/24 Second Hand Smoke Exposure: No Use of substances other than those prescribed or required for medical reasons: No Are you DNR?: No Advance Directives: No Advance Directives Information Provided: Yes service: No Current occupational status: 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 Cognitive needs: Yes Hearing needs: No Vision needs: Yes Meds Allergies Allergy/AdvReac Type Severity Reaction Status Date / Time No Known Allergies Allergy Verified 09/05/23 09:12 [No Known Allergies*] Home Medications ?Medication ?Instructions ?Recorded ?Confirmed ?Last Taken ?Type citalopram 20 mg tablet 20 mg PO DAILY 08/04/20 01/11/24 Unknown History prazosin 1 mg capsule 1 mg PO BEDTIME 08/04/20 01/11/24 Unknown History Exam Airway Mallampati Class: III TM Dist: >3cm Neck ROM: Full Partial: Upper and Lower Loose/Missing/Broken Teeth: Yes, Upper and Lower Heart: RRR Lungs: CTA Assessment and Plan Assessment Anesthesia Assessment: Anesthesia Plan Discussed Final Anesthetic Review NPO: Yes ASA Class: II Final Preanesthetic Review: Meds/Allgs Chart Reviewed, Consent Obtained/Reviewed and Anes Risks/Benef Reviewed Patient Risk: Low Procedure Risk: Low Anesthetic Plan Anesthetic Plan: MAC: Disposition: Standard PACU
[2024-01-11 09:05] VITALS: BMI 28.9
[2024-01-11 09:10] VITALS: BMI 28.9
[2024-01-11 09:11] VITALS: BP 111/77; PULSE 87; RESP 18; TEMP 36.6; O2SAT 98
--- NOTE | 2024-01-11 10:49 | P.HPSUR_ITS ---
Pre-Procedural Eval Section A - 24 Hr Update-Section A only Date of Service: 01/11/24 Section B - Complete if H&P > 30 days Chief Complaint: screening Relevant Family History (Specify if Yes): No Relevant Social History: Tobacco Use Present Medications: see Short Stay Collaborative assessment Medical History: Significant History (Constipation by delayed colonic transit Mild recurrent major depression Chronic leg pain Class 1 obesity with body mass index (BMI) of 31.0 to 31.9 in adult Anemia Dyslipidemia Tibia fracture Post- traumatic osteoarthritis of right knee) History of Previous Operations: Relevant previous surgery/procedure and date(s) (History of total right knee replacement History of removal of retained hardware S/P hernia repair) Allergies: Allergies Allergy/AdvReac Type Severity Reaction Status Date / Time No Known Allergies Allergy Verified 09/05/23 09:12 [No Known Allergies*] Review of Systems Sugical H&P ROS: Negative: Constitution, Cardiovascular, Respiratory, Neurological, Psychiatric, Hem-Onc, Allergic/Immunologic, Gastrointestinal, Genitourinary, Musculoskeletal, Integumentary, Endocrine and Eyes/Ears/Nose/Throat Exam Surgical H&P Exam: Normal: HEENT, Normal: Heart, Normal: Lungs, Normal: Extremities, Normal: Abdomen, Normal: Skin and Normal: Neurological Plan Diagnosis/Plan: Unchanged I have reviewed the history and physical and performed a pertinent physical examination on my patient. No changes have occurred unless specified. Time Spent With Patient Time: Total time managing care of this patient today ____ minutes.
--- NOTE | 2024-01-11 11:01 | P.OPN-COLO_ITS ---
Colonoscopy Operative Note Operative Note Date of Service: 01/11/24 Narrative: Operative Information Procedure Description: Colonoscopy Indication: screening Anesthesia: MAC COLONOSCOPY Instrument: Olympus variable stiffness pediatric scope 190L Colonoscopy Monitoring: Vital signs and clinical assessment, continuous EKG monitoring, Pulse oximetry, Carbon Dioxide monitoring and blood pressure monitoring were done throughout the procedure. Colon withdrawal time was 16 minutes. Procedure: The patient was placed in the left lateral decubitis position and pre-procedure medications were administered. After a digital rectal examination of the ano-rectum, the video colonoscope was inserted into the rectum and advanced through the colon to the cecum/TI. The colonoscope was slowly withdrawn in a retrograde panoramic fashion and the colon mucosa was carefully examined including a retroflexed view of the rectum. Findings and interventions are described below. Procedure Difficulty: easy Findings: Terminal Ileum-normal Cecum:normal Ascending Colon: 6-8 mm sessile polyp removed with cold snare Transverse Colon -normal Descending Colon:normal Sigmoid Colon: 7-9 mm sessile polyp removed with cold snare, mild diverticulosis Rectum: Retroflexion with small internal hemorrhoids seen, grade I, 6-8 mm sessile polyp removed with cold snare Anorectum - normal Intervention: cold snare Colon preparation: [place] Bowel Preparation Scale Right colon; 2 Transverse colon: 2 Left colon; 2 (0 = Unprepared colon segment with mucosa not seen due to solid stool that cannot be cleared. 1 = Portion of mucosa of the colon segment seen, but other areas of the colon segment not well seen due to staining, residual stool and/or opaque liquid. 2 = Minor amount of residual staining, small fragments of stool and/or opaque liquid, but mucosa of colon segment seen well. 3 = Entire mucosa of colon segment seen well with no residual staining, small fragments of stool or opaque liquid) Impression and Post Procedure Diagnosis: diverticulosis colon polyps internal hemorrhoids Plan: High fiber diet leaflet Avoid straining at stool, epsom salts and sitz bath, anusol supps or cream Repeat Colonoscopy in 4-5 years due to polyps or earlier if clinically indicated Above findings were reviewed with the patient and relevant handouts were provided if indicated.
[2024-01-11 11:38] VITALS: BP 95/62; PULSE 70; RESP 16; TEMP 36.1; O2SAT 97
[2024-01-11 11:53] VITALS: BP 94/52; PULSE 64; RESP 18; TEMP 36.1; O2SAT 97
== END 2024-01-11 12:25 | disposition home or self-care (01) ==
PROVIDERS: PCP Internal Medicine; Visit Provider Internal Medicine Gastroenterology
PROC: 0DJD8ZZ Inspection of Lower Intestinal Tract, Via Natural or Artificial Opening Endoscopic (ICD-10-PCS; CPT 45378; principal; 2024-01-11 10:50)
DX: Z12.11 Encounter for screening for malignant neoplasm of colon (principal); D12.2 Benign neoplasm of ascending colon; D12.5 Benign neoplasm of sigmoid colon; K62.1 Rectal polyp; K57.30 Diverticulosis of large intestine without perforation or abscess without bleeding; K64.0 First degree hemorrhoids; E78.5 Hyperlipidemia, unspecified; D64.9 Anemia, unspecified; F17.210 Nicotine dependence, cigarettes, uncomplicated; Z79.899 Other long term (current) drug therapy; Z79.02 Long term (current) use of antithrombotics/antiplatelets
CPT/HCPCS: 45385; 88305; J2704

== ENCOUNTER → 2024-01-11 08:42 | Outpatient (BNV) | payer OTHER, SELFPAY | PROVIDERS: PCP Internal Medicine; Visit Provider Internal Medicine Gastroenterology | DX: Z12.11 Encounter for screening for malignant neoplasm of colon (principal); D12.5 Benign neoplasm of sigmoid colon; D12.2 Benign neoplasm of ascending colon; K57.30 Diverticulosis of large intestine without perforation or abscess without bleeding | CPT/HCPCS: 45385 ==

== ENCOUNTER 2024-03-05 09:53 | Outpatient (AMB) | payer OTHER, SELFPAY ==
--- NOTE | 2024-03-05 10:08 | A.OFFPC_ITS ---
Vital Signs 03/05/24 10:09 Height 5 ft 8 in Weight 186 lb BMI 28.3 BP 108/70 Blood Pressure Location Lt brachial Position Sitting Intake Visit Reasons: pe Intake Note: Patient here for a physical exam Commissioning Manager Required: No Accompanied by: Self / Same As Patient Allergies No Known Allergies [No Known Allergies*] Allergy (Verified 03/05/24 10:31) Medication List - Last Reconciled 03/05/24 by Shila Owusu MD citalopram 20 mg PO DAILY miscellaneous medical supply As directed prazosin 1 mg PO BEDTIME [Showerchair shower chair] Tobacco use date assessed: 09/05/23 Dental Screening Dental Screen Date: 09/05/23 HPI HPI Comments History of Present Illness Details This is a 48-year-old male with mild recurrent major depression that comes for his physical exam depression stable with citalopram. Colonoscopy done 2023. He said colonoscopy will be repeated in a year. No chest pain or shortness on breath. No acute complaints. [facility] Medical History (Updated 03/05/24 @ 15:43 by Shila Owusu MD) Constipation by delayed colonic transit Mild recurrent major depression Chronic leg pain Class 1 obesity with body mass index (BMI) of 31.0 to 31.9 in adult Anemia Dyslipidemia Tibia fracture Post-traumatic osteoarthritis of right knee Surgical History History of total right knee replacement History of removal of retained hardware S/P hernia repair Family History Father No problems noted. 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 Bhargav Kaplan, Keesha Amaya, Herbert Alaniz and colleagues, with an educational gabrielle from [employer]. Review of Systems Const All systems reviewed & are unremarkable except as noted in HPI and below Card Denies chest pain at rest, Denies chest pain with activity, Denies edema, Denies irregular heart rhythm, Denies claudication, Denies dyspnea, Denies dyspnea on exertion, Denies orthopnea, Denies paroxysmal nocturnal dyspnea and Denies slow heart rate Resp Denies cough, Denies dyspnea and Denies dyspnea on exertion GI Denies abdominal pain, Denies change in bowel habits, Denies excessive flatus, Denies nausea and Denies vomiting Denies urinary hesitancy, Denies urinary incontinence and Denies urinary urgency Physical exam (Primary Care) Vital Signs: Last Vital Signs BP 108/70 03/05/24 10:09 BMI result Body Mass Index 28.3 Tobacco/Smoking Status: Tobacco use Status Tobacco use date assessed 09/05/23 03/05/24 10:13 Patient Tobacco Use Status Current everyday Tobacco 03/05/24 10:13 Tobacco use type Cigarette 03/05/24 10:13 e-Cigarette/Vaping Use Never Used 03/05/24 10:13 Thrive Assessment: Date of Thrive Assessment Date Thrive assessed 09/05/23 03/05/24 10:13 HENIA Head: Yes normal to inspection, Yes normocephalic and Yes atraumatic Ears: external ears normal Eyes General: appearance normal, both eyes and all related structures Eyelids: Yes eyelids normal Conjunctivae: conjunctivae normal Neck Neck: Yes normal visual inspection and Yes supple Resp Effort & Inspection: normal respiratory effort Auscultation: clear to auscultation bilaterally Cardio Jugular venous distension: no JVD Rate: regular rate Rhythm: regular rhythm Heart sounds: S1 normal heart sound present and S2 normal heart sound present GI Inspection: Yes normal to inspection Palpation (GI): Soft to palpation and nontender Auscultation: normal bowel sounds Skin General skin exam: no rashes or lesions noted Neuro General: no focal motor deficits Extrem General: Yes full ROM Psych Appearance: grossly normal Assessment and Plan Assessment & Plan (1) Physical exam: Code(s): Z00.00 - Encounter for general adult medical examination without abnormal findings Plan: Repeat in a year. (2) Mild recurrent major depression: Code(s): F33.0 - Major depressive disorder, recurrent, mild Plan: Continue citalopram. Medications: New ibuprofen 800 mg PO Q8H 30 days PRN 90 tabs 3RF pain Coding Level of Care Code Est Pt Prev Care 40-64y(47900) Diagnoses Physical exam Z00.00 Mild recurrent major depression F33.0 Time Spent (min) 31
[2024-03-05 10:09] VITALS: BP 108/70; BMI 28.3
== END 2024-03-05 10:45 | disposition home or self-care (01) ==
PROVIDERS: PCP Internal Medicine; Visit Provider Internal Medicine
DX: Z00.00 Encounter for general adult medical examination without abnormal findings (principal); F33.0 Major depressive disorder, recurrent, mild
CPT/HCPCS: 99396